=== PATIENT | female | born 1940 | race Caucasian/White ===

== ENCOUNTER → 2019-07-24 16:52 | Outpatient (CLI) | payer MEDICARE, SELFPAY ==
--- NOTE | ~2019-07-24 | XR_ITS ---
EXAMINATION: XR chest 2V 07/24/2019 17:13 INDICATION: Chest pain PROCEDURE: 2 view chest COMPARISON: 06/16/2013 FINDINGS: The lungs are clear. The cardiomediastinal silhouette is within normal limits. There are no pleural effusions. There is no pneumothorax suspected. IMPRESSION: 1: NO ACUTE CARDIOPULMONARY DISEASE. Reviewed, dictated and finalized at location A. WALKER
== END ==
PROVIDERS: PCP Family Medicine; Visit Provider Family Medicine
DX: R07.9 Chest pain, unspecified (principal)
CPT/HCPCS: 71046

== ENCOUNTER 2020-03-22 12:32 | Outpatient (CLI) | payer MEDICARE, SELFPAY ==
--- NOTE | ~2020-03-22 | XR_ITS ---
EXAMINATION: XR hip RT min 2V DATE: 03/22/2020 13:06 INDICATION: Right hip pain. TECHNIQUE: 2 views of right hip were obtained. COMPARISON: CT abdomen and pelvis 03/23/2016 FINDINGS: Bone alignment is normal. No fracture. There is severe right hip osteoarthritis. There are chronic dystrophic calcifications posterior inferior to the right ischium. IMPRESSION: 1. Severe right hip osteoarthritis. Reviewed, dictated and finalized at location A.
--- NOTE | ~2020-03-22 | XR_ITS ---
XR lumbar spine 2-3V 03/22/2020 13:06 Indication: Low back pain Procedure: 3 views lumbar spine Comparison: 10/09/2017 Findings: There is disc narrowing at L2-3 through L5-S1. No fracture or traumatic malalignment. No ev idence for spondylolysis or spondylolisthesis. Mild dextrocurvature of the lumbar spine centered at L 3. There are pelvic phleboliths. There are calcified granulomas of the spleen. Impression: 1: Moderate-severe lumbar spondylosis. Reviewed, dictated and finalized at location B. Impression: 1: Moderate-severe lumbar spondylosis.
== END 2020-03-22 12:33 | disposition home or self-care (01) ==
PROVIDERS: PCP Family Medicine; Visit Provider Family Medicine
DX: M47.896 Other spondylosis, lumbar region (principal); M16.11 Unilateral primary osteoarthritis, right hip
CPT/HCPCS: 72100; 73502

== ENCOUNTER 2021-12-19 09:53 | Outpatient (CLI) | payer MEDICARE, SELFPAY ==
--- NOTE | ~2021-12-19 | XR_ITS ---
XR hip RT 2V w AP pelvis DATE: 12/19/2021 10:19 INDICATION: Chronic right hip pain, worse over the past month TECHNIQUE: AP pelvis. AP and lateral views of right hip COMPARISON: 03/22/2020 right hip 03/23/2016 CT abdomen pelvis FINDINGS: Prominent dystrophic soft tissue calcifications are again noted in the lower posterior medi al aspect of the buttocks, present on 03/23/2016 CT abdomen pelvis examination. Since 03/22/2020 there is prominent flattening deformity of the right femoral head, increased patchy sclerosis and cystic change of the right femoral head and the apposing right acetabulum, in addition to spurring and severe right hip joint space narrowing, consistent with severe secondary osteoarthrit is. Normal alignment at the pubic symphysis and sacroiliac joints. No pelvic fracture or bone destruction is detected. The left hip joint space is well preserved. There is severe degenerative disc disease at L3-4, L4-5 and L5-S1. IMPRESSION: Prominent flattening deformity and patchy sclerosis and cystic change of the right femora l head, consistent with avascular necrosis. Severe right hip secondary osteoarthritis Severe degenerative disc disease at L3-4 through L5-S1 Chronic dystrophic soft tissue calcifications of the lower posterior medial buttocks Reviewed, dictated and finalized at location B. IMPRESSION: Prominent flattening deformity and patchy sclerosis and cystic woods ge of the right femoral head, consistent with avascular necrosis. Severe right hip secondary osteoarthritis Severe degenerative disc disease at L3-4 through L5-S1 Chronic dystrophic soft tissue calcifications of the lower posterior medial but tocks
== END 2021-12-19 09:54 | disposition home or self-care (01) ==
PROVIDERS: PCP Family Medicine; Visit Provider Physician Assistant
DX: M79.89 Other specified soft tissue disorders (principal); M16.11 Unilateral primary osteoarthritis, right hip; M47.817 Spondylosis without myelopathy or radiculopathy, lumbosacral region
CPT/HCPCS: 73502

== ENCOUNTER 2023-05-25 15:22 | Outpatient (CLI) | payer MEDICARE, SELFPAY ==
--- NOTE | ~2023-05-25 | US_ITS ---
US soft tissue head and neck DATE: 05/25/2023 16:03 INDICATION: Neck mass TECHNIQUE: Real time and color flow imaging at neck mass COMPARISON: None FINDINGS: There is an approximately 1.2 x 2.4 x 2.2 cm circumscribed sonolucency within the isthmus a nd left lower pole of the thyroid gland. 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 Reviewed, dictated and finalized at location A. E MAN
== END 2023-05-25 15:23 | disposition home or self-care (01) ==
PROVIDERS: PCP Family Medicine; Visit Provider Nurse Practitioner Family
DX: E04.1 Nontoxic single thyroid nodule (principal)
CPT/HCPCS: 76536

== ENCOUNTER 2023-06-27 09:28 | Inpatient (IN) | payer MEDICARE, SELFPAY ==
[2023-06-27] VITALS (8 sets, daily range): BP systolic 118–165; BP diastolic 54–86; PULSE 58–81; RESP 12–20; TEMP 36.6–37.1; O2SAT 96–98; BMI 22.4
--- NOTE | ~2023-06-27 | US_ITS ---
EXAMINATION: US carotid duplex BI DATE: 06/28/2023 08:38 INDICATION: Dizziness TECHNIQUE: Grayscale, color Doppler, and pulsed Doppler images of the cervical carotid arteries were obtained. The degree of vessel stenosis is placed in one of the following categories: normal, <50%, 5 0-69%, >=70% but less than near-occlusion, near-occlusion, or total occlusion. Note that percent sten osis relative to normal distal artery lumen diameter is indirectly measured from velocity measurement s as described by Marvin, et al. Radiology 2003; 229:340-346. COMPARISON: None. FINDINGS: RIGHT: The right common carotid artery (CCA) peak systolic velocity (PSV) is 77 cm/s. The right internal car otid artery (ICA) PSV is 90 cm/s. The right ICA end-diastolic velocity (EDV) is 31 cm/s. The right IC A/CCA PSV ratio is 1.2. Grayscale and color Doppler images yield an estimate of <50% diameter reducti on from plaque in the ICA. The external carotid artery (ECA) PSV is 78 cm/s. There is antegrade flow in the right vertebral artery. LEFT: The left CCA PSV is 79 cm/s. The left ICA PSV is 83 cm/s. The left ICA EDV is 24 cm/s. The left ICA/C CA PSV ratio is 1.1. Grayscale and color Doppler images yield an estimate of <50% diameter reduction from plaque in the ICA. The ECA PSV is 104 cm/s. There is antegrade flow in the left vertebral artery . IMPRESSION: 1. <50% stenosis in the right internal carotid artery. 2. <50% stenosis in the left internal carotid artery. 3. Cardiac arrhythmias present. Correlate with EKG. Reviewed, dictated and finalized at location A. IPITATE WASHER
--- NOTE | ~2023-06-27 | CT_ITS ---
EXAMINATION: CTA brain carotid DATE: 06/28/2023 17:01 INDICATION: Weakness. Fatigue. TECHNIQUE: Computed tomographic angiography (CTA) of the head was performed without and with 100 mL O mnipaque-350 intravenous contrast. CTA of the neck was performed with intravenous contrast. Automated exposure control and iterative reconstruction technique were employed. The dose-length product was 1 545.93 mGy-cm. Maximum intensity projection and volume rendered 3D-reconstructions were created by francisco cazares technologist on a separate workstation. COMPARISON: Head CT 06/27/2023 FINDINGS: HEAD CTA: There are scattered areas of low attenuation in the cerebral white matter, which is within normal limits for the patient's age. There is no intracranial hemorrhage, acute infarction, or abnorm al intracranial mass lesion. The ventricles are normal in size. There is mild mucosal thickening in t he paranasal sinuses. The mastoid air cells are normal. The orbits are normal. There is a right front al scalp lipoma. The vertebral arteries are codominant. There is no significant stenosis of basilar a rtery or the posterior cerebral arteries. There is no significant stenosis of the intracranial human resource internship al carotid arteries or anterior or middle cerebral arteries. Anterior communicating artery is normal. The posterior communicating arteries are normal. There is no aneurysm. NECK CTA: There are nodules in the thyroid measuring up to 2.2 cm. There are no pathologically enlarg ed lymph nodes. There is no significant stenosis of the vertebral arteries. There is plaque in the pr oximal internal carotid arteries. There is 0% stenosis of the proximal right internal carotid artery relative to normal distal artery lumen diameter (NASCET criteria). There is 44% stenosis of the proxi mal left internal carotid artery relative to normal distal artery lumen diameter. There is severe cer vical spondylosis. IMPRESSION: 1. Normal aging brain. 2. No aneurysm or significant intracranial arterial stenosis. 3. 0% stenosis of the proximal right internal carotid artery relative to normal distal artery lumen d iameter (NASCET criteria). 4. 44% stenosis of the proximal left internal carotid artery relative to normal distal artery lumen d iameter. Reviewed, dictated and finalized at location E. E ADVISOR IMPRESSION: 1. Normal aging brain. 2. No aneurysm or significant intracranial arterial stenosis. 3. 0% stenosis of the proximal right internal carotid artery relative to normal distal artery lumen diameter (NASCET criteria). 4. 44% stenosis of the proximal left internal carotid artery relative to normal distal artery lumen diameter.
--- NOTE | ~2023-06-27 | MR_ITS ---
EXAMINATION: MR brain/brain stem wo/w con DATE: 06/28/2023 08:04 INDICATION: Dizziness. Gait disturbance. TECHNIQUE: Magnetic resonance imaging (MRI) of the brain and brainstem was performed without intraven ous contrast. Sequences included sagittal and axial T1-weighted SE, axial diffusion-weighted FS SE, a xial T2*-weighted GRE, axial T2-weighted FLAIR Propeller, and axial T2-weighted Propeller. Apparent d iffusion coefficient (ADC) maps were created. Automated exposure control and iterative reconstruction technique were employed. COMPARISON: CT dated 06/27/2023. FINDINGS: Mild generalized atrophy. There are scattered mild periventricular and subcortical white ma tter changes, most likely related to small vessel ischemic disease (microangiopathy). No acute infarc tion, hemorrhage, enhancing mass or mass effect. Midline sagittal images demonstrate a normal corpus callosum and craniovertebral junction are paranasal sinuses and mastoids are unremarkable. Structures of the posterior fossa are unremarkable. IMPRESSION: 1. No acute intracranial abnormality. 2: Chronic age-related findings. Reviewed, dictated and finalized at location L. S AND RETAIL MANAGEMENT RECRUITER
--- NOTE | ~2023-06-27 | XR_ITS ---
XR chest 2V 06/27/2023 12:34 Indication: Weakness Procedure: 2 view chest Comparison: 07/24/2019 Findings: Cardiomegaly. Mild interstitial edema. No pneumothorax. No acute osseous abnormality. Impression: 1: Cardiomegaly with mild interstitial edema. Reviewed, dictated and finalized at location B. CIATE PROFESSOR OF ECONOMICS Impression: 1: Cardiomegaly with mild interstitial edema.
--- NOTE | ~2023-06-27 | CT_ITS ---
EXAMINATION: CT BRAIN W/O DATE: 06/27/2023 13:57 INDICATION: Dizziness and weakness TECHNIQUE: Computed tomography (CT) of the head was performed without intravenous contrast. The dose- length product was 605.33 mGy-cm. Automated exposure control and iterative reconstruction technique w ere employed. COMPARISON: No prior studies for comparison. FINDINGS: Mild generalized atrophy. No acute infarction, hemorrhage or mass. There are scattered mild periventricular and subcortical white matter changes, most likely related to small vessel ischemic d isease (microangiopathy). No ventriculomegaly or midline shift. Midline sagittal images demonstrate a normal corpus callosum, c raniovertebral junction and sella turcica. Basilar cisterns are patent. Paranasal sinuses and mastoids are pneumatized. No depressed skull fractures. IMPRESSION: 1. No acute intracranial abnormality. Reviewed, dictated and finalized at location B. RETE SWIMMING POOL INSTALLER
--- NOTE | 2023-06-27 12:03 | ECG_ITS ---
Measurements Intervals [place] Rate: 72 P: 52 MI: 148 QRS: -49 QRSD: 124 T: 49 QT: 434 QTc: 478 Interpretive Statements SINUS RHYTHM SUPRAVENTRICULAR BIGEMINY RIGHT BUNDLE BRANCH BLOCK LEFT ANTERIOR FASCICULAR BLOCK BASELINE ARTIFACT- I, II, III, AVR, AVL, AVF ABNORMAL ECG NO PREVIOUS ECG AVAILABLE FOR COMPARISON Electronically Signed On 06-27-2023 12:45:55 PRESIDENT by Cornelius Piña D.O.
--- NOTE | 2023-06-27 12:18 | ED.WEAKNESS ---
HPI - Weakness General Chief complaint: Weakness <Fidelina Rodriguez PA-C - Last Filed: 06/27/23 17:21> Stated complaint: weakness <NADEEM Rudolph Last Filed: 06/27/23 17:21> Time Seen by Provider: 06/27/23 12:11 <NADEEM Rudolph Last Filed: 06/27/23 17:21> Source: patient <NADEEM Rudolph Last Filed: 06/27/23 17:21> Mode of arrival: wheelchair <NADEEM Rudolph Last Filed: 06/27/23 17:21> Limitations: no limitations <NADEEM Rudolph Last Filed: 06/27/23 17:21> History of Present Illness HPI Narrative: This is a 83 year old female that presents to the ER for dizziness. Ongoing over the last 3 days. Reports lightheadedness. Reports feeling unsteady on her feet. Today she had to crawl to get around because she was afraid she would fall. Reports urinary frequency. Denies fever, chest pain, shortness of breath, palpitations, dysuria. <NADEEM Rudolph Last Filed: 06/27/23 17:21> Related Data Allergies/Adverse reactions: Allergies Allergy/AdvReac Type Severity Reaction Status Date / Time No Known Allergies Allergy Unknown Unverified 01/27/16 14:20 <Fidelina Rodriguez PA-C - Last Filed: 06/27/23 17:21> Review of Systems Review of Systems: CONSTITUTIONAL: Denies fever EYES: Denies visual changes CARDIOVASCULAR: Denies chest pain, palpitations, or edema. RESPIRATORY: Denies dyspnea. GASTROINTESTINAL: Denies vomiting GENITOURINARY: Denies dysuria NEUROLOGIC: Denies headache, numbness, or weakness. <NADEEM Rudolph Last Filed: 06/27/23 17:21> All systems reviewed & are unremarkable except as noted in HPI and below <NADEEM Rudolph Last Filed: 06/27/23 17:21> [facility] Past Medical History Medical History: Medical History (Updated 06/27/23 @ 17:16 by Fidelina Rodriguez PA-C) History of hyperlipidemia History of hypertension <Fidelina Rodriguez PA-C - Last Filed: 06/27/23 17:21> Social History Social History: Social History (Updated 06/27/23 @ 13:52 by Fidelina Rodriguez PA-C) Substance use: never <Fidelina Rodriguez PA-C - Last Filed: 06/27/23 17:21> Exam Narrative: GENERAL: Elderly, well-nourished, and in no acute distress. HEAD: Normocephalic, atraumatic. EYES: PERRLA and EOMI. ENT: Nares clear, no rhinorrhea or epistaxis. Mucous membranes moist. Oropharynx without tonsillar hypertrophy exudate or other lesions. Bilateral TMs pearly diallo non-bulging NECK: Supple. No adenopathy or masses. No JVD CHEST: Clear to auscultation. No respiratory distress. No wheezes rales or rhonchi HEART: Regular rate and rhythm. No murmur heard. Normal peripheral pulses. ABDOMEN: Soft, nontender, nondistended, normal active bowel sounds. No CVA tenderness EXTREMITIES: Normal range of motion. No edema. SKIN: Warm, dry, no rash. NEURO: No focal deficits. Alert and oriented x3. CN II-XII grossly intact PSYCH: Normal mood and affect <Fidelina Rodriguez PA-C - Last Filed: 06/27/23 17:21> Course Course Emergency Course: Patient and family updated on workup and agree with plan of care <Fidelina Rodriguez PA-C - Last Filed: 06/27/23 17:21> AIR PURIFIER SERVICER/PA Physician Supervision For this patient encounter, I reviewed the AIR PURIFIER SERVICER or PA documentation, treatment plan, and medical decision making. <Derek Mccarthy MD - Last Filed: 06/27/23 18:43> Consultations Consultation #1: Spoke with hospitalist about patient and workup who accepts admission. Would like MRI brain ordered <Fidelina Rodriguez PA-C - Last Filed: 06/27/23 17:21> Date: 06/27/23 <Fidelina Rodriguez PA-C - Last Filed: 06/27/23 17:21> Vital Signs Vital signs: Vital Signs Temperature 97.9 F 06/27/23 09:31 Pulse Rate 81 06/27/23 09:31 Respiratory Rate 18 06/27/23 09:31 Blood Pressure 159/61 H 06/27/23 09:31 Pulse Oximetry 98 06/27/23 09:31 Temperature 97.9 F 06/27/23 09:31 Pulse Rate 80 06/27/23 15:52 Respiratory Rate 17
[2023-06-27 12:25] LABS: Basophils Absolute Auto 0.1 K/mm3 (0.0-0.1); Basophils Percent Auto 0.7 % (0.2-1.2); Eosinophils Absolute Auto 0.1 K/mm3 (0-0.3); Eosinophils Percent Auto 1.8 % (0-4.4); Hematocrit 39.3 % (37.0-47.0); Hemoglobin 12.8 g/dL (12.0-15.0); Immature Granulocyte Absolute 0.01 K/mm3 (0.00-0.031); Immature Granulocyte Percent A 0.1 % (0-0.5); Lymphocytes Absolute Auto 1.91 K/mm3 (0.9-3.2); Lymphocytes Percent Auto 26.6 % (18.3-44.2); Mean Corpuscular HGB Conc 32.6 g/dl (32-36); Mean Corpuscular Hemoglobin 28.3 pg (26-34); Mean Corpuscular Volume 86.8 fl (80-100); Mean Platelet Volume 8.9 fl (7.4-10.4); Monocytes Absolute Auto 0.6 K/mm3 (0.1-0.6); Monocytes Percent Auto 7.8 % (2.6-8.5); Neutrophils Absolute Auto 4.5 K/mm3 (1.3-6.7); Platelet Count Result 308 k/mm3 (150-375); Red Blood Count 4.53 M/mm3 (4.2-5.4); Red Cell Distribution Width 13.5 % (11.5-14.5); White Blood Count 7.2 K/mm3 (4.5-10.0)
[2023-06-27 12:34] LABS: Alanine Aminotransferase 27 U/L (6-35); Albumin Level 4.2 g/dL (3.5-5.1); Alkaline Phosphatase 82 U/L (38-126); Anion Gap 8 mmol/L (8-16); Aspartate Amino Transferase 33 U/L (14-36); Bilirubin,Total 0.4 mg/dL (0.2-1.3); Blood Urea Nitrogen 16 mg/dL (7-17); Calcium 8.8 mg/dL (8.4-10.2); Carbon Dioxide 25 mmol/L (22-30); Chloride 106 mmol/L (98-107); Estimated CRCL calculation 51 ml/min; Estimated Glomerular Filt Rate > 60; Glucose 157 mg/dL (65-110); Potassium 4.2 mmol/L (3.4-5.0); Sodium 139 mmol/L (137-145)
[2023-06-27 12:58] LABS: Appearance Urine Clear (Clear); Bacteria Urine None Seen /hpf; Bilirubin Urine Negative (Negative); Blood Urine Negative (Negative); Color Urine Yellow (Yellow); Glucose Urine UA Negative (Negative); Ketones Urine Negative (Negative); Leukocyte Esterase Ur 1+ LEU/UL (Negative); Nitrate Urine Negative (Negative); Non Pathogenic Casts 0-2; Protein Urine Negative (Negative); RBC Urine 0-2 /hpf (0-2); Specific Grav Ur 1.008 (1.001-1.035); Squamous Epithelial Cell Urine None seen /hpf (Few); Urobilinogen Urine 0.2 mg/dL (<2.0)
[2023-06-27 13:00] LABS: Influenza A QL RT-PCR Negative (Negative); Influenza B QL RT-PCR Negative (Negative); RSV RNA, RT-PCR Negative (Negative); SARS-CoV-2 RNA PCR Negative (Negative)
[2023-06-27 13:03] LABS: Add Urine Microscopic? YES
[2023-06-27 13:24] LABS: NT Pro B Type Natriuretic Pept 147 pg/mL (19.9-100)
--- NOTE | 2023-06-27 13:52 | PC.NURSE ---
pt taken to CT
[2023-06-27] MEDS: SODIUM CHLORIDE 0.9% IV 500 ML 250 ML IV CONT (14:05)
[2023-06-27 14:42] LABS: Troponin I < 0.012 ng/mL (0.000-0.034)
[2023-06-27 15:02] LABS: Thyroid Stimulating Hormone Reflex 0.105 uIU/mL (0.465-4.68)
[2023-06-27 15:46] LABS: Free T4 Free Thyroxine Reflex 0.93 ng/dL (0.78-2.19)
--- NOTE | 2023-06-27 16:33 | PC.NURSE ---
standard heart healthy diet dinner tray ordered
--- NOTE | 2023-06-27 20:07 | PM.IMHP ---
H&P: HPI History of Present Illness Date/Time: 06/27/23 16:30 Chief Complaint: Dizziness. Narrative: This is a very pleasant 83-year-old female with hypertension and hyperlipidemia who presented to the emergency department via private vehicle for evaluation of dizziness. The patient provides the following history. The last 3 days she has been feeling dizzy and unsteady on her feet. She has difficulties describing the dizziness and at times it sounds as though she is lightheaded although it sounds like she is also having some component of vertigo as she reports having to hold onto orr and furniture to keep steady. At about 03:00 she got up to use the restroom and once again she was feeling quite dizzy. She did not make it back to bed and instead sat on the bathroom floor with a cool rag on her face for several hours until she could phoned her daughter. She denies fall, vision changes, facial droop, difficulty speaking and swallowing, focal weakness, and paresthesias. She also denies fever, chills, sweats, cold and flu symptoms, irregular heartbeat, nausea, vomiting, diarrhea, and dysuria. Her vital signs were stable on arrival to the emergency department. Orthostatic vital signs were negative. Random glucose was a bit elevated though the rest of her labs were pretty unremarkable. Urine showed 1+ leukocyte esterase and 11 to [address] was normal. Ambulation challenge revealed that she felt unsteady on her feet and she is being admitted in this setting for monitoring and further workup. Patient is worried that she may have had a stroke. Review of Systems Review of Systems: Twelve systems were reviewed and are negative except for as per HPI. [facility] Past Medical History Medical History (Updated 06/27/23 @ 20:18 by Madai Ardon PA-C) Hyperlipidemia Hypertension Surgical History Surgical History (Updated 06/27/23 @ 20:13 by Madai Ardon PA-C) History of cholecystectomy History of right hip replacement Family History Family History (Updated 06/27/23 @ 20:13 by Madai Ardon PA-C) Other Family history non-contributory Social History Social History (Updated 06/27/23 @ 20:15 by Madai Ardon PA-C) Social History: Surrogate medical decision maker: Danii Saba, daughter. Code status: Full code. Smoking status: Never smoker Alcohol intake: never Substance use: never Do You Feel Safe in your Home?: Yes Lack of Transportation: No Lack of Food: Never True Current Housing: I Have Housing Concerned About Future Housing: No Difficulty Paying Gas/Electric Bills: No Difficulty Paying for Meds: No Currently Unemployed: No Education: Decline to Answer Difficulty w/ Childcare or Family Care: No Additional living arrangements comments: Lives [place] They have 4 children. Spiritual care concerns: No Meds Home Medications and Allergies Home Medications Medication Instructions Recorded Confirmed Type Adults Multivitamin 1 tablet PO DAILY 06/27/23 06/27/23 History aspirin 81 mg capsule 81 mg PO DAILY 06/27/23 06/27/23 History lisinopril 5 mg tablet 5 mg PO DAILY 06/27/23 06/27/23 History rosuvastatin 10 mg tablet 10 mg PO DAILY 06/27/23 06/27/23 History Allergies Allergy/AdvReac Type Severity Reaction Status Date / Time No Known Allergies Allergy Unknown Unverified 01/27/16 14:20 Vital Signs Vital Signs - 24 hr 06/27/23 09:31 06/27/23 12:51 06/27/23 14:29 Temperature 97.9 F Pulse Rate 81 74 69 Respiratory Rate 18 20 17 Blood Pressure 159/61 H 143/59 H 125/86 Pulse Oximetry 98 97 96 06/27/23 15:48 06/27/23 15:50 06/27/23 15:52 Temperature Pulse Rate 67 76 80 Respiratory Rate Blood Pressure 142/57 H 160/60 H 165/75 H Pulse Oximetry Exam Narrative: General: Well-developed elderly female sitting up in bed no acute distress. Weight: 52 kg. BMI: 22.4. HEENT: Normocephalic, atraumatic. Wearing corrective
[2023-06-28] VITALS (12 sets, daily range): BP systolic 101–147; BP diastolic 56–71; PULSE 57–89; RESP 12–16; TEMP 36.2–36.6; O2SAT 95–97
[2023-06-28 06:09] LABS: Anion Gap 8 mmol/L (8-16); Blood Urea Nitrogen 16 mg/dL (7-17); Calcium 8.9 mg/dL (8.4-10.2); Carbon Dioxide 25 mmol/L (22-30); Chloride 109 mmol/L (98-107); Estimated CRCL calculation 43 ml/min; Estimated Glomerular Filt Rate > 60; Glucose 108 mg/dL (65-110); Potassium 4.2 mmol/L (3.4-5.0); Sodium 142 mmol/L (137-145)
[2023-06-28 06:47] LABS: Hemoglobin A1C 6.3 % (<5.7)
[2023-06-28] MEDS: MULTIVITAMINS THERAPEUTIC TAB (*BKC) 1 TABLET PO (10:03)
[2023-06-28] MEDS: ROSUVASTATIN 10 MG TABLET PO (10:03)
[2023-06-28] MEDS: lisinopriL 5 MG TABLET PO (10:04)
[2023-06-28] MEDS: ASPIRIN 81 MG ENTERIC TABLET PO (10:04)
--- NOTE | 2023-06-28 11:06 | PM.IMPN ---
Progress Note: A&P Assessment and Plan (1) Dizziness: Code(s): R42 - Dizziness and giddiness Status: Acute Assessment and Plan: MRI brain without any acute findings, chronic age related changes only. Carotid doppler showing less than 50% bilateral ICA stenosis. Also showing a cardiac arrhythmia. No known hx of known arrhythmias. Telemetry has shown Continue to monitor labs, VS and tele Non-orthostatic ECHO and Neurology consult are currently pending. (2) Cardiac arrhythmia: Code(s): I49.9 - Cardiac arrhythmia, unspecified Status: Acute Assessment and Plan: Pt's EKG's reviewed and show Bigemenous pattern. Pt's Carotid US shows that there was an arrhythmia present upon performing the test. Concern for potential undiagnosed arrhythmia as she has no known abnormal rhythm. Pt is symptomatic with dizziness. Consult Cardiology, appreciate their evaluation and recommendation. Magnesium is 2.0, Calcium is 8.9, normal trop. Subclinical hypothyroidism is present. (3) Subclinical hypothyroidism: Code(s): E03.8 - Other specified hypothyroidism Status: Acute Assessment and Plan: TSH is low at 0.105, but Free T4 is preserved at 0.93 Recommend following up in three months with repeat labs. (4) Hypertension: Code(s): I10 - Essential (primary) hypertension Status: Chronic Assessment and Plan: Continue to monitor BP Continue Lisinopril 5 mg po daily. (5) Abnormal urinalysis: Code(s): R82.90 - Unspecified abnormal findings in urine Status: Acute Assessment and Plan: UA with 1+ Leukocyte esterase, and 11-20 WBC's in a setting of no epithelials. Continue with Empiric Rocephin pending Urine culture result. (6) Hyperlipidemia: Code(s): E78.5 - Hyperlipidemia, unspecified Status: Chronic Assessment and Plan: Continue Rosuvastatin 10 mg po daily. Time Spent With Patient Time with patient: 25 - 35 minutes Subjective Date/time seen: 06/28/23 0910 Interval history: This pt was examined at the bedside in interval assessment after being admitted to the hospital for a three day hx of vertigo and unsteadiness of gait. Her orthostats have been negative and her ER workup was significant for abnormal UA with possible reflection of UTI. She is receiving empiric Rocephin. She was admitted to the floor pending Neuro work up as pt is ultimately concerned that she may have had a stroke. Pt with continued dizziness today with changing positions. MRI has returned without any acute findings except for chronic age related changes only. Carotid doppler shows less than fifty percent stenosis bilaterally. Still pending is ECHO and urine culture as well as PT and OT eval and treat and Neurology consult. She has no new complaints today and is without any new symptoms. Review of her tele does show concerns for Bigeminy with current symptoms. Will consider consulting Cardiology. Review of Systems Review of Systems: All systems reviewed & are unremarkable except as noted in HPI and below Exam Narrative: General: Well-developed elderly female sitting up in bed no acute distress. She appears somewhat anxious regarding her current health situation. HEENT: Normocephalic, atraumatic. Wearing corrective lenses. PERRL, EOMI. Sclera anicteric. Oral mucosa moist. Neck: Supple, FROM, carotid bruits. Respiratory: Lungs are clear to auscultation bilaterally. Cardiovascular: Regular rate and rhythm with S1-S2. Gastrointestinal: Abdomen is soft, nontender, and nondistended with positive bowel sounds. Skin: Warm and dry. No rash or lesions on limited exam. Extremities: No cyanosis, clubbing, or edema. Radial and pedal pulses intact. Neurological: Alert and oriented. Non-focal exam present without any obvious deficits. Psychiatric: Pleasant and cooperative with a anxious affect, continually interrupting my questions and explanations. Pt reassured th
--- NOTE | 2023-06-28 13:26 | PM.CNCAR ---
Assessment and Plan Assessment and plan (1) Cardiac arrhythmia: Code(s): I49.9 - Cardiac arrhythmia, unspecified Status: Acute Assessment and Plan: Patient is sinus rhythm with PACs and periodic atrial bigeminy. This may be related to her hyperthyroid. Electrolytes are stable otherwise. (2) Atrial bigeminy: Code(s): I49.8 - Other specified cardiac arrhythmias Status: Acute Assessment and Plan: Will try low-dose propanolol 10 mg p.o. b.i.d. especially given her possible hyperthyroid state. 2D echocardiogram Doppler to ordered will be reviewed (3) Hyperthyroidism: Code(s): E05.90 - Thyrotoxicosis, unspecified without thyrotoxic crisis or storm Status: Acute Assessment and Plan: T3 levels are elevated. TSH is suppressed but T4 is normal. Endocrinology evaluation is warranted (4) Hypertension: Code(s): I10 - Essential (primary) hypertension Status: Chronic Assessment and Plan: Controlled (5) Dizziness: Code(s): R42 - Dizziness and giddiness Status: Acute Assessment and Plan: Her symptoms sound more orthostatic in etiology but reportedly her orthostatics were negative although I do not see that documented. Will reorder. I doubt, albeit not excluded, that her atrial ectopy is causing her symptoms of dizziness History of Present Illness History of Present Illness Consult date/time: 06/28/23 13:26 Requesting physician: Verónica Roe, [employer]ING [employer]PERATOR-Jalen Consult reason: Other (Dizziness, atrial bigeminy) Reason For Visit: uti,dizziness,gait instability Narrative: Date of service 06/28/2023 Requesting provider: Verónica Roe Reason for consultation: Bigeminy, dizziness History: Patient is a 83-year-old female came to hospital because of dizziness. She has a history of hypertension hyperlipidemia. She states that she had acute onset of dizziness and unsteadiness. Typically speaking her dizziness occurs when she stands up. She does not advocate that her symptoms are related to the room spinning for she standing. She simply states she feels lightheaded and is if she could pass out. She was admitted for further workup. Workup to this point is essentially benign including unremarkable carotid artery ultrasound, neuro imaging. Was noted patient does have PACs and atrial bigeminy and cardiology consulted for the possibility of these being the cause of her dizziness. She denies any chest pain, shortness breath, syncope, paroxysmal nocturnal dyspnea, orthopnea, edema palpitations Review of Systems Review of Systems: All systems reviewed & are unremarkable except as noted in HPI and below Constitutional: Constitutional: Denies body ache(s) Eyes: Eyes: Denies blurry vision ENT: Denies Normal hearing present Cardiovascular: Cardiovascular: Denies chest pain and Denies palpitations Respiratory: Respiratory: Denies hemoptysis Gastrointestinal: Gastrointestinal: Denies abdominal pain Genitourinary: Genitourinary: Denies hematuria Musculoskeletal: Musculoskeletal: Denies back pain Integumentary/Breasts: Skin/Breast: Denies erythema Neurologic: Denies Abnormal speech present Comments: Dizziness Psychiatric: Psychiatric: Denies anxiety Endocrine: Endocrine: Denies excessive sweating Hematologic/Lymphatic: Hematologic/Lymphatic: Denies easy bleeding Allergic/Immunologic: Allergic/Immunologic: Denies GI upset with certain foods PMFSH Past Medical History Medical History (Updated 06/28/23 @ 13:33 by Ervin Brown MD) Cardiac arrhythmia Hyperlipidemia Hypertension Subclinical hypothyroidism Surgical History Surgical History (Updated 06/27/23 @ 20:13 by Madai Ardon PA-C) History of cholecystectomy History of right hip replacement Family History Family History (Updated 06/28/23 @ 13:31 by Ervin Brown MD) Mother Acute myocardial infarction Other Family history non-contributory
--- NOTE | 2023-06-28 14:31 | WPDNEURCNPN ---
Assessment and Plan Assessment and plan (1) Lightheadedness: Code(s): R42 - Dizziness and giddiness Status: Acute (2) Acute UTI: Code(s): N39.0 - Urinary tract infection, site not specified Status: Acute Plan Samantha Owens is a 83 year old female with a history of hypertension, hyperlipidemia presenting for evaluation of lightheadedness. Seems to be most likely orthostatic intolerance, especially since symptoms are exacerbated by positional change. She may also have a UTI for which she is being treated, which may also exacerbate her symptoms. She reports that she does not drink very much fluid at baseline. MRI Brain and carotid doppler studies unrevealing. TSH is low. I do not see levothyroxine in her home meds, sounds like subclinical hyperthyroidism since T4 is normal. Could be related to her symptoms as well. - Obtain CTA brain/carotid to evaluate for posterior circulation insufficiency - Check orthostatic vitals during admission Consult date: 06/28/23 Reason for consult: Lightheadedness HPI: Samantha Owens is a 83 year old female with a history of hypertension, hyperlipidemia presenting for evaluation of lightheadedness. Patient reports that yesterday morning, she got up around 3AM to go to the [facility]. While getting up she felt lightheadedness, or how she describes it like she was going to 'pass out'. She denies any room spinning sensation or vertigo. She has been feeling very lightheadedness since then, that is worse with positional change (lying to sitting, sitting to standing). Her lightheadedness was so bad that night, that she had to crawl to the kitchen to call her daughter. She denied any other focal symptoms. No chest pain, shortness of breath, tunnel vision, tinnitus. Patient reports that she does not drink very much water. In the ED her orthostatics were reportedly negative. UA showed 1+ LE and 11-[address] head was negative for acute change. BP has been in the 110s- 140s systolic in the past day. MRI brain read as negative for acute changes. Carotid doppler study showed <50% stenosis bilaterally, but report also mentions presence of cardiac arrhythmias. Cardiology already consulted for this finding. EKG on admission read as sinus rhythm. Review of Systems Review of Systems: All systems reviewed & are unremarkable except as noted in HPI and below PMFSH Past Medical History Medical History Cardiac arrhythmia Hyperlipidemia Hypertension Subclinical hypothyroidism Surgical History Surgical History History of cholecystectomy History of right hip replacement Family History Family History Mother Acute myocardial infarction Other Family history non-contributory Social History Social History Social History: Surrogate medical decision maker: Danii Saba, daughter. Code status: Full code. Smoking status: Never smoker Alcohol intake: never Substance use: never Do You Feel Safe in your Home?: Yes Lack of Transportation: No Lack of Food: Never True Current Housing: I Have Housing Concerned About Future Housing: No Difficulty Paying Gas/Electric Bills: No Difficulty Paying for Meds: No Currently Unemployed: No Education: Decline to Answer Difficulty w/ Childcare or Family Care: No Additional living arrangements comments: Lives with spouse in [place]. They have 4 children. Spiritual care concerns: No Meds Home Medications and Allergies Home Medications Medication Instructions Recorded Confirmed Type Adults Multivitamin 1 tablet PO DAILY 06/27/23 06/27/23 History aspirin 81 mg capsule 81 mg PO DAILY 06/27/23 06/27/23 History lisinopril 5 mg tablet 5 mg PO DAILY 06/27/23 06/27/23 History rosuvastatin 10 mg tablet 10 mg PO DAILY 06/27/2306/27
--- NOTE | 2023-06-28 20:19 | ECHO_ITS ---
Patient Info Name: Samantha Owens Age: 83 years : 1940 Gender: Female Ht: 62 in Wt: 120 lbs BSA: 1.55 m2 HR: 71 bpm BP: 118 / 54 mmHg Heart Rhythm: Sinus Rhythm Technical Quality: Good Exam Date: 06/28/2023 9:31 AM Exam Location: Echo Lab Patient Status: Outpatient Admit Date: 06/27/2023 Staff Ordering Physician: Madai Ardon PA-C Lumber Loader: Anitha Casas RDCS Attending Provider: Verónica Roe Referring Physician: Reva SWANSON; Exam Type: CA echo doppler color flow Study Info Indications - dizziness, cardiomegaly Complete two-dimensional, color flow and Doppler transthoracic echocardiogram is performed. Summary 1. Complete two-dimensional, color flow and Doppler transthoracic echocardiogram is performed. 2. Left ventricular chamber dimension is normal. 3. Left ventricular systolic function is normal, estimated at 60-65%. 4. There is mildly increased left ventricular wall thickness. 5. The left ventricular diastolic function is grade I diastolic dysfunction. 6. Left atrial chamber dimension is mildly enlarged. 7. Right atrial chamber dimension is mildly enlarged. 8. There is moderate aortic valve regurgitation. 9. There is mild mitral valve regurgitation. 10. The mitral valve has thickened leaflets. 11. There is mild tricuspid valve regurgitation. Left Ventricle Left ventricular chamber dimension is normal. Left ventricular systolic function is normal, estimated at 60-65%. There is mildly increased left ventricular wall thickness. The left ventricular diastolic function is grade I diastolic dysfunction. Right Ventricle Right ventricular chamber dimension is normal. Right ventricular systolic function is normal. Left Atria Left atrial chamber dimension is mildly enlarged. Right Atria Right atrial chamber dimension is mildly enlarged. Atrial Septum Intact interatrial septum visualized by color flow imaging. Aortic Valve The aortic valve is probable trileaflet. There is mild aortic valve sclerosis. There is no aortic valve stenosis. There is moderate aortic valve regurgitation. Pulmonic Valve The pulmonic valve is normal. There is no pulmonic valve stenosis. There is trace pulmonic regurgitation. Mitral Valve The mitral valve has thickened leaflets. There is no mitral valve stenosis. There is mild mitral valve regurgitation. Tricuspid Valve The tricuspid valve leaflets are normal. There is no significant tricuspid valve stenosis. There is mild tricuspid valve regurgitation. No pulmonary hypertension, estimated pulmonary arterial systolic pressure is 20 mmHg. Pericardium/Pleural The pericardium appears normal. There is no pericardial effusion. Inferior Vena Cava Normal inferior vena cava with >50% collapse upon inspiration consistent with normal right atrial pressure, 10 mmHg. Aorta The aortic root size at the sinus of Valsalva is normal. Left Ventricular Outflow Tract Name Value Normal LVOT 2D LVOT Diameter 1.7 cm LVOT Doppler LVOT Peak Gradient 7 mmHg LVOT Mean Gradient 4 mmHg LVOT VTI 27 cm LVOT VTI/AV VTI Ratio
[2023-06-28] MEDS: PROPRANOLOL HCL 10 MG TABLET PO (20:50)
[2023-06-29] VITALS: PULSE 56
[2023-06-29 04:00] VITALS: PULSE 53
[2023-06-29 05:46] LABS: Basophils Absolute Auto 0.1 K/mm3 (0.0-0.1); Eosinophils Absolute Auto 0.6 K/mm3 (0-0.3); Eosinophils Percent Auto 7.7 % (0-4.4); Hemoglobin 12.9 g/dL (12.0-15.0); Immature Granulocyte Absolute 0.02 K/mm3 (0.00-0.031); Immature Granulocyte Percent A 0.3 % (0-0.5); Lymphocytes Absolute Auto 2.65 K/mm3 (0.9-3.2); Lymphocytes Percent Auto 36.3 % (18.3-44.2); Mean Corpuscular HGB Conc 33.1 g/dl (32-36); Mean Corpuscular Hemoglobin 28.7 pg (26-34); Mean Corpuscular Volume 86.7 fl (80-100); Mean Platelet Volume 8.8 fl (7.4-10.4); Monocytes Absolute Auto 0.7 K/mm3 (0.1-0.6); Monocytes Percent Auto 9.2 % (2.6-8.5); Neutrophils Absolute Auto 3.3 K/mm3 (1.3-6.7); Neutrophils Percent Auto 45.5 % (45.5-73.1); Platelet Count Result 293 k/mm3 (150-375); Red Cell Distribution Width 13.7 % (11.5-14.5); White Blood Count 7.3 K/mm3 (4.5-10.0)
[2023-06-29 06:00] VITALS: BP 129/57; PULSE 87; RESP 16; TEMP 36.5; O2SAT 96
[2023-06-29 06:04] LABS: Alanine Aminotransferase 23 U/L (6-35); Albumin Level 3.6 g/dL (3.5-5.1); Alkaline Phosphatase 69 U/L (38-126); Anion Gap 7 mmol/L (8-16); Aspartate Amino Transferase 24 U/L (14-36); Bilirubin,Total 0.5 mg/dL (0.2-1.3); Blood Urea Nitrogen 16 mg/dL (7-17); Calcium 8.9 mg/dL (8.4-10.2); Carbon Dioxide 25 mmol/L (22-30); Chloride 107 mmol/L (98-107); Estimated CRCL calculation 43 ml/min; Estimated Glomerular Filt Rate > 60; Glucose 105 mg/dL (65-110); Potassium 4.3 mmol/L (3.4-5.0); Sodium 139 mmol/L (137-145)
--- NOTE | 2023-06-29 07:29 | PM.PNCARD ---
Progress Note: A&P Assessment and Plan (1) Cardiac arrhythmia: Code(s): I49.9 - Cardiac arrhythmia, unspecified Status: Acute Assessment and Plan: Patient is sinus rhythm with PACs and periodic atrial bigeminy. This may be related to her hyperthyroid. Electrolytes are stable otherwise. Cardiology will sign off. Please call with questions. (2) Atrial bigeminy: Code(s): I49.8 - Other specified cardiac arrhythmias Status: Acute Assessment and Plan: Will try low-dose propanolol 10 mg p.o. b.i.d. especially given her possible hyperthyroid state. Echo showed normal LC systolic function, grade I diastolic dysfunction, and moderate AI. (3) Hyperthyroidism: Code(s): E05.90 - Thyrotoxicosis, unspecified without thyrotoxic crisis or storm Status: Acute Assessment and Plan: T3 levels are elevated. TSH is suppressed but T4 is normal. Endocrinology evaluation is warranted (4) Hypertension: Code(s): I10 - Essential (primary) hypertension Status: Chronic Assessment and Plan: Controlled (5) Dizziness: Code(s): R42 - Dizziness and giddiness Status: Acute Assessment and Plan: Her symptoms sound more orthostatic in etiology, however, orthostatics were negative. I doubt, albeit not excluded, that her atrial ectopy is causing her symptoms of dizziness Subjective Date/time seen: 06/29/23 07:29 Interval history: Cardiology follow up for PAC's Feeling well today. Report less dizziness. No palpitations or chest pain. Review of Systems Review of Systems: All systems reviewed & are unremarkable except as noted in HPI and below Constitutional: Constitutional: Denies body ache(s) and Denies excessive sweating Eyes: Eyes: Denies blurry vision ENT: Denies Normal hearing present Cardiovascular: Cardiovascular: Denies chest pain and Denies palpitations Respiratory: Respiratory: Denies hemoptysis Gastrointestinal: Gastrointestinal: Denies abdominal pain Genitourinary: Genitourinary: Denies hematuria Musculoskeletal: Musculoskeletal: Denies back pain Integumentary/Breasts: Skin/Breast: Denies erythema Neurologic: Denies Normal hearing present and Denies Abnormal speech present Psychiatric: Psychiatric: Denies anxiety Endocrine: Endocrine: Denies excessive sweating and Denies palpitations Hematologic/Lymphatic: Hematologic/Lymphatic: Denies easy bleeding Allergic/Immunologic: Allergic/Immunologic: Denies GI upset with certain foods Exam Narrative: Alert oriented appears to be in no acute distress Const: General: comfortable and no acute distress HENMT: Face/Nose/Sinus: Normal nares present Mouth: Yes moist mucous membranes Eyes: General: appearance normal, both eyes and all related structures Sclera: sclerae normal Neck: Neck: supple and no JVD Carotids: no bruits Chest: Other: No reproducible chest wall pain to palpation Resp: Effort & Inspection: normal respiratory effort Auscultation: clear to auscultation bilaterally Cardio: Rate: regular rate Rhythm: regular rhythm Heart sounds: no murmurs Other: Ectopy noted GI: Inspection: non-distended Auscultation: normal bowel sounds Skin: General skin exam: normal color Neuro: Cranial nerves: No Normal hearing present Speech: normal speech and No Abnormal speech present Sensory Exam: normal sensation Extrem: General: normal to inspection Psych: Mental Status: mental status grossly normal Affect: normal affect Objective Data Vital Signs Vital Signs: Vital Signs - 24 hr 06/28/23 13:01 06/28/23 10:00 06/28/23 12:00 Temperature Pulse Rate 79 Respiratory Rate Blood Pressure Pulse Oximetry Oxygen Delivery Room Air Room Air 06/28/23 13:40 06/28/23 14:50 06/28/23 14:53 Temperature 36.2 C L Pulse Rate 67 76 84 Respiratory Rate 16 Blood Pressure 139/57 L 101/58 L 106/59 L Pulse Oximetry 97 Oxygen Deliv
[2023-06-29 08:03] VITALS: PULSE 39; PULSE 62
[2023-06-29] MEDS: ASPIRIN 81 MG ENTERIC TABLET PO (08:42)
[2023-06-29] MEDS: MULTIVITAMINS THERAPEUTIC TAB (*BKC) 1 TABLET PO (08:42)
[2023-06-29] MEDS: lisinopriL 5 MG TABLET PO (08:43)
[2023-06-29] MEDS: ROSUVASTATIN 10 MG TABLET PO (08:43)
[2023-06-29] MEDS: PROPRANOLOL HCL 10 MG TABLET PO (08:43)
[2023-06-29] MEDS: MECLIZINE HCL 12.5 MG TABLET PO (09:25)
--- NOTE | 2023-06-29 11:46 | P.DS_ITS ---
DS: Admitting Diagnosis Discharge Date 06/29/2023 Admitting Diagnosis Dizziness, Hypertension, HLD, Abnormal UA DS: Discharge Diagnosis Discharge Diagnosis (1) Dizziness: Code(s): R42 - Dizziness and giddiness Status: Acute Assessment and Plan: * MRI brain without any acute findings, chronic age related changes only. * Carotid doppler showing less than 50% bilateral ICA stenosis. Also showing a cardiac arrhythmia. No known hx of known arrhythmias. Telemetry has shown bigeminy. * Continue to monitor labs, VS and tele * Non-orthostatic * ECHO and Neurology consult are currently pending. * 06/29/23, Discharge date, pt has remained non-orthostatic, MRI brain negative, ECHO showing normal LVSF of 60-65% and Grade 1 Diastolic dysfunction. Carotid dopplers showing less than 50% bilateral ICA Stenosis. CTA Head and neck show normal aging brain, no aneurysm or significant ICA stenosis. Neurology has consulted, Dr. Melchor, and she has no recommendations for further treatment, testing or follow up. Pt was trialed on Meclizine and reports that it did help with her dizziness. (2) Cardiac arrhythmia: Code(s): I49.9 - Cardiac arrhythmia, unspecified Status: Acute Assessment and Plan: * Pt's EKG's reviewed and show Bigemenous pattern. * Pt's Carotid US shows that there was an arrhythmia present upon performing the test. * Concern for potential undiagnosed arrhythmia as she has no known abnormal rhythm. * Pt is symptomatic with dizziness. * Consult Cardiology, appreciate their evaluation and recommendation. * Magnesium is 2.0, Calcium is 8.9, normal trop. * Subclinical hypothyroidism is present. * 06/29/23, Date of discharge, Pt continues to have Bigeminy and has been started on Propanolol 10 mg BID per Cardiology. Cardiology is of the opinion that there is no correlation in the pt's Bigemeny and the symptoms she is experiencing of dizziness. They have signed off of the case. (3) Subclinical hyperthyroidism: Code(s): E05.90 - Thyrotoxicosis, unspecified without thyrotoxic crisis or storm Status: Acute Assessment and Plan: * 06/29/23, Discharge Date, TSH is low at 0.105, but Free T4 is preserved at 0.93. Recommend following up in three months with repeat labs. Pt will also be referred to [facility], Dr. Sanedrs for follow up. Cardiology favors this dx as the possible cause of pt's symptoms. (4) Hypertension: Code(s): I10 - Essential (primary) hypertension Status: Chronic Assessment and Plan: * Continue to monitor BP * Continue Lisinopril 5 mg po daily. * 06/29/23, Discharge Date, Stable BP, will recommend continuation of home medications. (5) Abnormal urinalysis: Code(s): R82.90 - Unspecified abnormal findings in urine Status: Acute Assessment and Plan: * UA with 1+ Leukocyte esterase, and 11-20 WBC's in a setting of no epithelials. * Continue with Empiric Rocephin pending Urine culture result. * 06/29/23, Date of discharge, UA shows Gram negative Bacilli. No hx of ESBL or previous UTI. She received Rocephin while here and has symptomatically improved. Will discharge with Augmentin for continued therapy and continue to watch for culture sensitivity to change as needed. (6) Hyperlipidemia: Code(s): E78.5 - Hyperlipidemia, unspecified Status: Chronic Assessment and Plan: * Continue Rosuvastatin 10 mg po daily. DS: Summary Hospital Course Reason for hospitalization: Dizziness and giddiness, Weakness and abnormal UA Hospital Course: This is a very pleasant 83-year-old female
--- NOTE | 2023-06-29 11:46 | PM.DS ---
DS: Admitting Diagnosis Discharge Date 06/29/2023 Admitting Diagnosis Dizziness, Hypertension, HLD, Abnormal UA DS: Discharge Diagnosis Discharge Diagnosis (1) Dizziness: Code(s): R42 - Dizziness and giddiness Status: Acute Assessment and Plan: MRI brain without any acute findings, chronic age related changes only. Carotid doppler showing less than 50% bilateral ICA stenosis. Also showing a cardiac arrhythmia. No known hx of known arrhythmias. Telemetry has shown bigeminy. Continue to monitor labs, VS and tele Non-orthostatic ECHO and Neurology consult are currently pending. 06/29/23, Discharge date, pt has remained non-orthostatic, MRI brain negative, ECHO showing normal LVSF of 60-65% and Grade 1 Diastolic dysfunction. Carotid dopplers showing less than 50% bilateral ICA Stenosis. CTA Head and neck show normal aging brain, no aneurysm or significant ICA stenosis. Neurology has consulted, Dr. Melchor, and she has no recommendations for further treatment, testing or follow up. Pt was trialed on Meclizine and reports that it did help with her dizziness. (2) Cardiac arrhythmia: Code(s): I49.9 - Cardiac arrhythmia, unspecified Status: Acute Assessment and Plan: Pt's EKG's reviewed and show Bigemenous pattern. Pt's Carotid US shows that there was an arrhythmia present upon performing the test. Concern for potential undiagnosed arrhythmia as she has no known abnormal rhythm. Pt is symptomatic with dizziness. Consult Cardiology, appreciate their evaluation and recommendation. Magnesium is 2.0, Calcium is 8.9, normal trop. Subclinical hypothyroidism is present. 06/29/23, Date of discharge, Pt continues to have Bigeminy and has been started on Propanolol 10 mg BID per Cardiology. Cardiology is of the opinion that there is no correlation in the pt's Bigemeny and the symptoms she is experiencing of dizziness. They have signed off of the case. (3) Subclinical hyperthyroidism: Code(s): E05.90 - Thyrotoxicosis, unspecified without thyrotoxic crisis or storm Status: Acute Assessment and Plan: 06/29/23, Discharge Date, TSH is low at 0.105, but Free T4 is preserved at 0.93. Recommend following up in three months with repeat labs. Pt will also be referred to Occupational Nurse, Dr. Sanders for follow up. Cardiology favors this dx as the possible cause of pt's symptoms. (4) Hypertension: Code(s): I10 - Essential (primary) hypertension Status: Chronic Assessment and Plan: Continue to monitor BP Continue Lisinopril 5 mg po daily. 06/29/23, Discharge Date, Stable BP, will recommend continuation of home medications. (5) Abnormal urinalysis: Code(s): R82.90 - Unspecified abnormal findings in urine Status: Acute Assessment and Plan: UA with 1+ Leukocyte esterase, and 11-20 WBC's in a setting of no epithelials. Continue with Empiric Rocephin pending Urine culture result. 06/29/23, Date of discharge, UA shows Gram negative Bacilli. No hx of ESBL or previous UTI. She received Rocephin while here and has symptomatically improved. Will discharge with Augmentin for continued therapy and continue to watch for culture sensitivity to change as needed. (6) Hyperlipidemia: Code(s): E78.5 - Hyperlipidemia, unspecified Status: Chronic Assessment and Plan: Continue Rosuvastatin 10 mg po daily. DS: Summary Hospital Course Reason for hospitalization: Dizziness and giddiness, Weakness and abnormal UA Hospital Course: This is a very pleasant 83-year-old female with hypertension and hyperlipidemia who presented to the emergency department via private vehicle on 06/27/23 for evaluation of dizziness. She endorsed 3 days of feeling dizzy and unsteady on her feet prior to arrival. She had difficulties describing the dizziness and at times it sounds as though she is lightheaded although it sounds like she is also having some component of vertigo as she r
[2023-06-29 12:01] VITALS: PULSE 59
[2023-06-29 14:00] VITALS: BP 132/58; PULSE 73; RESP 16; TEMP 36.8; O2SAT 95
--- NOTE | 2023-07-05 07:40 | PC.NURSE ---
Pt dc on Augmentin. Pt dc on Amox/Clavu. It is susceptible to this med.
== END 2023-06-29 14:35 | disposition home or self-care (01) | DRG 690 ==
LOC: ANHED 17:16 → ANH2MED 17:43
PROVIDERS: Emergency Medicine; Physician Assistant; Admitting Provider Family Medicine; Emergency Provider Physician Assistant; PCP Family Medicine; Visit Provider Nurse Practitioner Adult Health
DX: N39.0 Urinary tract infection, site not specified (principal); I49.8 Other specified cardiac arrhythmias; B96.89 Other specified bacterial agents as the cause of diseases classified elsewhere; E78.5 Hyperlipidemia, unspecified; E05.90 Thyrotoxicosis, unspecified without thyrotoxic crisis or storm; I10 Essential (primary) hypertension; R73.9 Hyperglycemia, unspecified; Z90.49 Acquired absence of other specified parts of digestive tract; Z96.641 Presence of right artificial hip joint; Z79.82 Long term (current) use of aspirin
CPT/HCPCS: 36415; 70450; 70496; 70498; 70553; 71046; 80048; 80053; 81001; 83036; 83735; 83880; 84439; 84443; 84480; 84484; 85025; 87086; 87186; 87637; 93005; 93306; 93880; 96361; 96365; 96366; 97161; 97165; 99285; A9270; A9577; G0378; J0696; J7040; Q9967

== ENCOUNTER 2023-08-01 13:55 | Outpatient (CLI) | payer MEDICARE, SELFPAY ==
--- NOTE | ~2023-08-01 | US_ITS ---
EXAMINATION: US thyroid DATE: 08/01/2023 14:42 INDICATION: Thyroid nodule. TECHNIQUE: Multiple ultrasound images of the thyroid were obtained. COMPARISON: Ultrasound 05/25/2023 FINDINGS: The right thyroid lobe measures 4.6 x 1.7 x 1.5 cm. The left thyroid lobe measures 4.4 x 2.1 x 1.8 c m. In the right thyroid lobe, there is a 2.1 cm solid, hypoechoic, wider than tall nodule with lobul ated margin and punctate echogenic foci (TI-RADS TR5). In the right thyroid lobe, there is a 11 mm so lid, hypoechoic, wider than tall nodule with lobulated margin without echogenic foci (TR4). In the th yroid isthmus, there is a 25 mm cystic nodule (TR1). In the left thyroid lobe, there is a 2.5 cm mixe d cystic and solid, hypoechoic, wider than tall nodule with smooth margin without echogenic foci (TR3 ). In the left thyroid lobe, there is a 13 mm mixed cystic and solid, hypoechoic, wider than tall nod ule with lobulated margin without echogenic foci (TR4). IMPRESSION: 1. Multinodular goiter. Consider ultrasound-guided fine-needle aspiration of 2 nodules if clinically indicated given the patient's age. Reviewed, dictated and finalized at location A. N ORIGINATION SPECIALIST
== END 2023-08-01 13:56 | disposition home or self-care (01) ==
PROVIDERS: PCP Family Medicine; Visit Provider Nurse Practitioner Family
DX: E04.2 Nontoxic multinodular goiter (principal)
CPT/HCPCS: 76536

== ENCOUNTER 2023-08-14 12:21 | Outpatient (CLI) | payer MEDICARE, SELFPAY ==
--- NOTE | ~2023-08-14 | US_ITS ---
EXAMINATION: 1. US FNA w image guidance 2. US FNA additional DATE: 08/14/2023 14:04 INDICATION: Thyroid nodule. TECHNIQUE: The procedure and its benefits and risks were discussed with the patient. Risks specifically discusse d included bleeding. The patient verbalized understanding of the risks and agreed to proceed. The nec k was prepped and draped in the usual sterile manner. 1% lidocaine was used for local anesthesia. 6 passes were made with a 25G needle into the lesion in right thyroid lobe under ultrasound guidance. 6 passes were made with a 25-gauge needle into the lesion in left thyroid lobe under ultrasound herrera nce. There were no immediate complications. FINDINGS: Grayscale ultrasound images demonstrate needles advanced into a 2.1 cm nodule in right thyroid lobe f or biopsy. Grayscale ultrasound images demonstrate needles advanced into a 2.5 cm nodule in left thyr oid lobe for biopsy. IMPRESSION: 1. Ultrasound-guided fine needle aspiration of a right thyroid nodule. 2. Ultrasound-guided fine-needle aspiration of a left thyroid nodule. Reviewed, dictated and finalized at location A. IMPRESSION: 1. Ultrasound-guided fine needle aspiration of a right thyroid nodule. 2. Ultrasound-guided fine-needle aspiration of a left thyroid nodule.
== END 2023-08-14 12:22 | disposition home or self-care (01) ==
LOC: ANHIMG 12:22
PROVIDERS: PCP Family Medicine; Visit Provider Otolaryngology
DX: E04.1 Nontoxic single thyroid nodule (principal)
CPT/HCPCS: 10005; 10006; 88172; 88173; 88305

== ENCOUNTER 2024-03-04 11:15 | Outpatient (CLI) | payer MEDICARE, BC, SELFPAY ==
--- NOTE | ~2024-03-04 | US_ITS ---
Chest wall ULTRASOUND Ordering provider: Kelvin Javier DO History: . R22.2 - Localized swelling, mass and lump, trunk . Comparison: None. FINDINGS/impression: Complex echogenicity is noted measuring 4.9 x 1.6 x 4.3 cm. The differential includes enlarged lymph node, and less likely hematoma. Neurogenic tumor or other pathological masses is not excluded. Follow -up and further evaluation advised. Reviewed, dictated and finalized at location A.
== END 2024-03-04 11:16 | disposition home or self-care (01) ==
LOC: MICIMG 11:16
PROVIDERS: PCP Family Medicine; Visit Provider Family Medicine
DX: R22.2 Localized swelling, mass and lump, trunk (principal)
CPT/HCPCS: 76604

== ENCOUNTER 2024-03-17 10:45 | Outpatient (CLI) | payer MEDICARE, SELFPAY ==
--- NOTE | ~2024-03-17 | CT_ITS ---
Clinical Indication: Left upper chest wall mass CT Scan of the Chest with Contrast: Technique: Contiguous sections were acquired throughout the chest after intravenous administration of 75 cc of Omnipaque 350. Dose reduction technique was used on this scan by utilizing automated exposu re control and iterative reconstruction technique. The dose-length product (DLP) was 129.32 mGy-cm. Findings: Hypodense thyroid nodules are present, largest at the isthmus to left wall measuring 2 cm i n diameter. There is a 2.1 x 2.0 x 4.6 cm mass in the upper, anterior subcutaneous soft tissues of th e left chest, with extensive fat attenuation and a thin minimally hyperdense rim/perforation. There is no evidence of any significant mediastinal, hilar or axillary lymphadenopathy. There is no f illing defect in the pulmonary arterial tree to suggest pulmonary embolus. There is no evidence of ao rtic dissection or aneurysm. There is no evidence of pleural or pericardial effusion. The lungs are clear, similar to several tiny scattered granulomas. Images through the upper abdomen reveal no abnormalities. Impression: 2.1 x 2.0 x 4.6 cm fatty attenuation mass in the subcutaneous soft tissues at the upper left chest. T his is most compatible with lipoma, fat necrosis, or other benign predominantly fat attenuation lesio n. Reviewed, dictated and finalized at location . Impression: 2.1 x 2.0 x 4.6 cm fatty attenuation mass in the subcutaneous soft tissues at t he upper left chest. This is most compatible with lipoma, fat necrosis, or othe r benign predominantly fat attenuation lesion.
[2024-03-17 11:05] LABS: Estimated Glomerular Filt Rate > 60
== END 2024-03-17 10:46 | disposition home or self-care (01) ==
LOC: MICIMG 10:48
PROVIDERS: PCP Surgery; Visit Provider Family Medicine
DX: R92.2 Inconclusive mammogram (principal)
CPT/HCPCS: 71260; Q9967

== ENCOUNTER 2024-03-31 01:09 | Day surgery (SDC) | payer MEDICARE, SELFPAY ==
[2024-03-26 15:31] VITALS: BMI 21.7
--- NOTE | 2024-03-26 15:54 | PC.NURSE ---
Report to the Outpatient Waiting Room, entrance under the green pavilion located off [facility], at time ___12:30PM____ on date ___03/31/24____. Planned Procedure Time: ___2:30PM .? Time changes happen often and if your time is changed the preop area will call you the afternoon before. - You and your visitor will be asked to self-screen and do not enter if you have any COVID symptoms. Please call surgeon if you need to reschedule. - A mask is optional within the hospital at this time. Patients may have clear liquids (water, carbonated beverages, clear teas, apple juice) until 11:30AM, 3 hours prior to surgery with a maximum of 20 ounces. - No food from midnight until time of surgery and no smoking. Take only the following medications with a SIP of water on the morning of surgery: NONE DO NOT STOP ANY OF YOUR OTHER PRESCRIPTION MEDICATIONS PRIOR TO SURGERY EXCEPT THE FOLLOWING Medications to discontinue per physician HOLD ALL VITAMINS/SUPPLEMENTS 3 DAYS PRE-OP PER ANESTHESIA Date to take last dose 03/27/24 Please no make-up, nail hungarian, hairspray, perfume, deodorant, or body powder the day of surgery.? No jewelry (including any body piercings) or valuables the day of surgery, leave them at home.? Please take a shower or bath the night before, or the morning of, surgery with an antibacterial soap.? Wear comfortable, loose fitting clothing.? Children are encouraged to wear pajamas. - Jewelry must be removed prior to entering the operating room.? Rings and piercings that are not removed may be cut off. - The hospital will not accept responsibility for valuables.? - Please leave all valuables, including medications, at home the day of surgery. If you are going home after surgery, a licensed front end loader driver must drive you home.? - NO public transportation without another adult if you receive anesthesia. - We recommend that an adult stay with you for 24 hours following discharge. - We also recommend that you do not drive, make important decision, drink alcoholic beverages, or take any drugs that were not prescribed by your health care provider for at least 24 hours after your discharge time. For Pediatric surgeries, we recommend two adults accompany the child home. Follow any additional instructions given to you from your surgeon. Telephone instructions given to ____PATIENT & SON, WARREN and asked if any additional questions and then verbalized understanding. Patient advised to call surgeon office or pre surgery nurse liaison [phone] if any additional questions.
--- NOTE | 2024-03-30 15:55 | P.PNAN_ITS ---
Anes - Eval Pre Procedure Procedure: Operation Date: 03/31/24 14:30 Proposed Procedures p Excisional Biopsy of Upper Left Chest Wall Subcutaneous Mass - Lacey Mix MD Date/Time: 03/30/24 15:55 Pre Op Diagnosis: subcutaneous mass Patient Data Age: 84 Gender: F Height: 1.55 m Weight: 52 kg Allergies Allergy/AdvReac Type Severity Reaction Status Date / Time No Known Allergies Allergy Unknown Verified 03/26/24 15:28 Home Medications Medication Instructions Recorded Confirmed Type aspirin 81 mg capsule 81 mg PO DAILY 06/27/23 03/26/24 History lisinopril 5 mg tablet 5 mg PO DAILY 06/27/23 03/26/24 History rosuvastatin 10 mg tablet 10 mg PO DAILY 06/27/23 03/26/24 History multivitamin 1 tablet PO DAILY 03/26/24 03/26/24 History Patient hx anesthesia problems: none Family hx anesthesia problems: none Results Review: All pre-operative results and documents have been reviewed as part of the pre- operative evaluation. [facility] Past Medical History Medical History Cardiac arrhythmia Hyperlipidemia Hypertension Subclinical hyperthyroidism Subclinical hypothyroidism Surgical History Surgical History History of cholecystectomy History of right hip replacement Family History Family History Mother Acute myocardial infarction Other Family history non-contributory Social History Social History Social History: Surrogate medical decision maker: Danii Saba, daughter. Code status: Full code. Smoking status: Never smoker Alcohol intake: never Substance use: never Do You Feel Safe in your Home?: Yes Lack of Transportation: No Lack of Food: Never True Current Housing: I Have Housing Concerned About Future Housing: No Difficulty Paying Gas/Electric Bills: No Difficulty Paying for Meds: No Currently Unemployed: No Education: Decline to Answer Difficulty w/ Childcare or Family Care: No Living arrangements: with family Additional living arrangements comments: [facility] Spiritual care concerns: No Exam Day of Procedure 03/30/24 15:55
--- NOTE | 2024-03-31 07:29 | WPDHPUPDATE1 ---
History and Physical Update Update Date/Time: 03/31/24 07:29 History and Physical has been reviewed, including an updated exam of the patient. There are NO changes in the patient's condition. Risks, benefits, and alternatives have been discussed and questions answered. Patient agrees to proceed with procedure.
[2024-03-31 13:09] VITALS: BP 168/53; PULSE 40; RESP 18; TEMP 37; O2SAT 97
[2024-03-31] MEDS: LACTATED RINGERS 1,000 ML 30 ML IV CONT (13:14)
[2024-03-31 13:30] VITALS: BP 144/61
--- NOTE | 2024-03-31 13:47 | WPDANESEPPF ---
Anes - Initial Pre Proc Eval Procedure: Operation Date: 03/31/24 14:30 Proposed Procedures p Excisional Biopsy of Upper Left Chest Wall Subcutaneous Mass - Lacey Mix MD Date/Time: 03/31/24 13:47 Surgeon: Lacey Mix MD Pre Op Diagnosis: subcutaneous mass Patient Data Age: 84 Gender: F Height: 1.55 m Weight: 53.8 kg Last Vital Signs Temp 37.0 C 03/31/24 13:09 Pulse 40 L 03/31/24 13:09 Resp 18 03/31/24 13:09 BP 144/61 H 03/31/24 13:30 Pulse Ox 97 03/31/24 13:09 O2 Del Method Room Air 03/31/24 13:09 Allergies Allergy/AdvReac Type Severity Reaction Status Date / Time No Known Allergies Allergy Unknown Verified 03/31/24 13:08 Home Medications Medication Instructions Recorded Confirmed Type aspirin 81 mg capsule 81 mg PO DAILY 06/27/23 03/26/24 History lisinopril 5 mg tablet 5 mg PO DAILY 06/27/23 03/26/24 History rosuvastatin 10 mg tablet 10 mg PO DAILY 06/27/23 03/26/24 History multivitamin 1 tablet PO DAILY 03/26/24 03/31/24 History hydrocodone 5 mg-acetaminophen 325 1 tablet PO Q6H PRN pain #10 tabs 03/31/24 Rx mg tablet Patient hx anesthesia problems: none Family hx anesthesia problems: none Results Review: All pre-operative results and documents have been reviewed as part of the pre-operative evaluation. [facility] Past Medical History Medical History Cardiac arrhythmia Hyperlipidemia Hypertension Subclinical hyperthyroidism Subclinical hypothyroidism Surgical History Surgical History History of cholecystectomy History of right hip replacement Family History Family History Mother Acute myocardial infarction Other Family history non-contributory Social History Social History Social History: Surrogate medical decision maker: Danii Saba, daughter. Code status: Full code. Smoking status: Never smoker Alcohol intake: never Substance use: never Do You Feel Safe in your Home?: Yes Lack of Transportation: No Lack of Food: Never True Current Housing: I Have Housing Concerned About Future Housing: No Difficulty Paying Gas/Electric Bills: No Difficulty Paying for Meds: No Currently Unemployed: No Education: Decline to Answer Difficulty w/ Childcare or Family Care: No Living arrangements: with family Additional living arrangements comments: [place] Spiritual care concerns: No Anes - Eval Final PreProcedure Day of Procedure 03/31/24 13:47 Patient weight: normal Heart: regular rate and rhythm Lungs: clear to auscultation Airway: Mallampati scale class III Neurological: alert and oriented Last oral intake: >/= 8 hours ASA classification: III Emergent: no Anesthetic plan: proceed Anesthesia type and monitoring: general GIVS and standard monitoring Other findings: no teeth Results Review: All pre-operative results and documents have been reviewed as part of the pre-operative evaluation. Informed Consent: The patient's anesthetic plan and its attendant risks and benefits were discussed with the patient/family/POA. Questions were solicited and answers provided to the satisfaction of the patient/family/POA.
[2024-03-31] MEDS: ceFAZolin 2 GM/D5W 50 ML 2 GM/50 ML BAG IVPB (13:58)
[2024-03-31] MEDS: BUPIVACAINE/EPINEPHRINE 0.5% 50 ML VIAL 20 ML INFILTRATE (14:21)
--- NOTE | 2024-03-31 14:28 | W.PM.PROC2 ---
Procedure Note - Detailed Date of Procedure 03/31/24 Pre-op Diagnosis left chest wall subcutaneous mass Post-op Diagnosis Same Procedure Performed excisional biopsy left chest wall subcutaneous mass measuring 11 x 5 cm Surgeon Lacey Mix MD Anesthesia MAC and Local Indications 84-year-old female presenting to the office with a enlarging left chest wall subcutaneous mass. Patient reports that the area is somewhat symptomatic especially to pressure and palpation. Findings 11 x 5 cm subcutaneous left chest wall mass most consistent with lipoma Description of Procedure The patient was taken to the operating room and placed in the supine position. After adequate induction of MAC anesthesia, the patient was prepped and draped in the normal sterile fashion. A time-out was then done to verify the patient's identity, as well as the procedure being performed. Local anesthetic was then placed into the anticipated incision and around the mass. Then made incision with a 15 blade scalpel in the dermis overlying the mass. This incision was carried down into the subcutaneous tissue. A well-circumscribed mass was encountered in the subcutaneous tissue. It was well encapsulated. I was able to bluntly dissect around this mass and the posterior portions of the mass were noted to be adherent to the underlying fascia. The mass did not extend into the fascia or the underlying muscle. I was able to excise the mass in full and it measured 11 x 5 cm. It will be sent to pathology for further review. No other pathology was noted in the cavity. Hemostasis was noted. Further local anesthetic was placed. I then closed the subcutaneous tissue with 3-0 Vicryl suture. The skin was closed with 4-0 Monocryl subcuticular suture. Dermabond was placed on the wound. The patient tolerated the procedure well. She was alert and awake in the operating room postoperatively. She will be sent to the recovery room in stable condition. Estimated Blood Loss 10 Pathology Yes Complications No immediate complications Condition Stable Disposition PACU [facility] Billing Surgery - Charge Forward: Surgery Billing
[2024-03-31 14:37] VITALS: BP 110/55; PULSE 76; RESP 12; O2SAT 97
[2024-03-31 14:45] VITALS: O2SAT 97
[2024-03-31 15:00] VITALS: BP 137/62; PULSE 66; RESP 16; O2SAT 93
[2024-03-31 15:22] VITALS: BP 130/55; PULSE 68; RESP 16
== END 2024-03-31 15:32 | disposition home or self-care (01) ==
PROVIDERS: PCP Family Medicine; Visit Provider Surgery
PROC: (CPT 21552; principal; 2024-03-31 14:30)
DX: D17.1 Benign lipomatous neoplasm of skin and subcutaneous tissue of trunk (principal); I10 Essential (primary) hypertension; E78.5 Hyperlipidemia, unspecified; I49.9 Cardiac arrhythmia, unspecified; E05.90 Thyrotoxicosis, unspecified without thyrotoxic crisis or storm; E03.8 Other specified hypothyroidism; Z79.82 Long term (current) use of aspirin; Z79.891 Long term (current) use of opiate analgesic; Z98.890 Other specified postprocedural states; Z90.49 Acquired absence of other specified parts of digestive tract; Z82.49 Family history of ischemic heart disease and other diseases of the circulatory system
CPT/HCPCS: 21552; 88304; J0690; J2003; J2405; J2704; J3010; J7120

== ENCOUNTER 2024-08-18 08:18 | Outpatient (CLI) | payer MEDICARE, SELFPAY ==
--- NOTE | ~2024-08-18 | NM_ITS ---
EXAMINATION: NM kvng stress w perfusion DATE: 08/18/2024 10:24 INDICATION: Chest pain TECHNIQUE: Rest images were obtained following intravenous administration of 9.8 mCi Tc99m tetrofosmi n (Myoview). The patient was infused intravenously with Lexiscan (Regadenoson). Then, 32.4 mCi Tc99m tetrofosmin (Myoview) was administered intravenously, and stress images were obtained. Data was recon structed into short axis and horizontal and vertical long axis SPECT images. Gated SPECT images were also obtained. COMPARISON: None. FINDINGS: There is no definite reversible or fixed perfusion abnormality to suggest ischemia or infar ction. There is normal left ventricular chamber size, wall motion and ejection fraction. Left ventr icular ejection fraction measures >70%. IMPRESSION: 1. Normal myocardial perfusion at rest and during stress. 2. Left ventricular ejection fraction measuring >70%. Reviewed, dictated and finalized at location A.
--- OUTSIDE RECORDS SUMMARY | 2024-08-18 08:39 | XMS_ITS | Data Portability ---
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 [email or web address] Not available 03/09/2022 11:54:49 03/28/2022 03/28/2022 82-year-old female 2 weeks status post right total hip arthroplasty. [email or web address] Not available 03/28/2022 14:41:49 04/25/2022 04/25/2022 A 2-year-old female status post 6 weeks from her right total hip arthroplasty on 03/13/2022. [email or web address] Not available 04/25/2022 14:27:41 Plan of Treatment Reminders Order Date Submit Date Provider Last Modified By Organization Details Last Modified Time Details Appointments None recorded. Lab None recorded. Referral None recorded. Procedures None recorded. Surgeries None recorded. Imaging XR, hip, unilateral, 2 or 3 view 2021 022 [email or web address] [facility], [address] [place], [address], 18:10:25 XR, hip, unilateral, 2 or 3 view 2021 022 [email or web address] [facility], [address] [place], [address], 13:13:13 XR, lumbosacral spine, 2 or 3 view 2021 022 [email or web address] [facility], [address], [place], [address], 13:13:13 Medication Orders None recorded. Patient TargetsNo targets recorded. Patient Instructions Encounter Date Encounter Id Patient Instructions Last Modified By Organization Details Last Modified Time 03/09/2022 [id number] At this time, patient would benefit significantly from a right total hip arthroplasty. 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 Patient would benefit from a right total hip arthroplasty. Patient like to proceed with surgery at this time. Patient has failed physical therapy as well as other conservative measures. Patient proceed with right total hip arthroplasty 03/13/22 at [facility]. The patient is refractory to conservative management including physical therapy and anti-inflammatory medication, has degenerative X-ray changes, and has disabling pain which interferes with activities of daily living, self care skills, and desired activity level. The above evaluation, diagnosis, and plan of care including our duties, our role in the patient's overall care,and our expectations of the patient's responsibilities in our treatment plan were discussed with the patient and all questions and concerns were addressed. I also had a detailed discussion today with the patient concerning the proposed procedure. I explained the procedure in great detail using layman's terms including the risks, benefits, prognosis, complications, and alternatives. The generally agreed upon risks of the specific procedure as well as potential risks of any operative procedure including, but not limited to, blood loss, infection, postoperative pain, stiffness, nerve injury, blood vessel injury, tendon injury, cartilage injury, loss of function of any limb or organ system partial or complete, temporary or permanent, partial or complete paralysis, paraplegia, quadriplegia, disfiguring scar, brain damage, respiratory arrest,multi-system failure, cardiac arrest and/or , and uncertainty of outcome were discussed. The patient understands that surgery may not alleviate every symptom or problem for which the procedure is being done. The patient also understands that there is the chance improvement may not occur, symptoms may become worse, as well as the possibility of additional symptoms developing, or the need for additional surgery. No guarantees were given as to the results of the procedure or final treatment outcome. All the patient's questions were answered to their satisfaction. Informed consent was thus obtained and the patient verbalizes understanding, accepts all risks, and wishes to proceed with the procedure. This encounter was completed with the assistance of voice recognition software. Interpretive errors may exist that were not detected at the time of sign off review and may be subject to subsequent amendment. [email or web address] Not available 03/09/2022 12:01:47 03/28/2022 [id number] Continue postop total hip rehab and progress. I will see her back in 1 month. The above evaluation, diagnosis, and plan of care including our duties, our role in the patient's overall care, and our expectations of the patient's responsibilities in our treatment plan were discussed with the patient and all questions and concerns were addressed. This encounter was completed with the assistance of voice recognition software. Interpretive errors may exist that were not detected at the time of sign off review and may be subject to subsequent amendment. [email or web address] Not available 03/28/2022 14:42:56 04/25/2022 [id number] Plan 1. Continue ljjk-jjr-oejiuyr analgesics p.r.n. 2. Continue home strengthening and stretching exercises. Work on abduction strengthening. 3. Plan to see the patient back in 6 weeks for recheck and repeat radiographs. The above evaluation, diagnosis, and plan of care including our duties, our role in the patient's overall care, and our expectations of the patient's responsibilities in our treatment plan were discussed with the patient and all questions and concerns were addressed. This encounter was completed with the assistance of voice recognition software. Interpretive errors may exist that were not detected at the time of sign off review and may be subject to subsequent amendment. [email or web address] Not available 04/25/2022 14:33:43 Reason for Referral None Reported. Results Created Date Observation Date Name Description Value Unit Range Abnormal Flag Note LastModifiedBy Organization Detail LastModifiedTime 03/06/20 XR, hip, unila teral , 2 or 3 view No observ ation record ed. [email or web address] [facility] [id number] [place], [address], 03/09/2022 11:55:59 03/06/20 XR, lumbo sacra l spine , 2 or 3 view No observ ation record ed. [address], [address], 03/09/2022 11:58:59 03/13/2003/13/2022 imagi ng/di agnos tic resul t No observ ation record ed. [facility] [address], [place], [address], 03/13/2022 16:37:49 03/27/20 XR, hip, unila teral , 2 or 3 view No observ ation record ed. [email or web address] [address], [address], 03/28/2022 14:42:37 Result Notes None recorded. Procedures Surgical History Date Name Laterality Status Provider Name and Address Organization Details Recorded Time 03/13/20 TOTAL HIP ARTHROPLASTY (SURG) completed Not Available [facility] 03/13/2022 16:41:35 hysterectomy completed [facility] 03/09/2022 10:19:02 gallbladder endoscopy completed [facility] 03/09/2022 10:19:24 Imaging Results Imaging Date Name Status [facility]Modified by [facility] Details LastModified Time 03/06/2022 XR, hip, unilateral, 2 or 3 view completed [address], [address], 03/09/2022 11:55:59 03/06/2022 XR, lumbosacral spine, 2 or 3 view completed [address], [address], 03/09/2022 11:58:59 03/13/2022 imaging/diagnos tic result active [facility] [address], [place], [address], 03/13/2022 16:37:49 03/27/2022 XR, hip, unilateral, 2 or 3 view completed [facility] [address] [facility], [place], [address], 03/28/2022 14:42:37 Procedure Notes None recorded. Medical Equipment None Reported. Allergies No known drug allergies Medications Name Sig Start Date Stop Date Status Note LastModified by Organization Details LastModified Time Colace 100 mg capsule Take 1 capsule every day by oral route for 60 days. 03/28 completed Not Available Not Available Not Available hydrocodone 5 mg-acetamino phen 325 mg tablet TAKE 1 TABLET BY MOUTH EVERY 6 HOURS 03/28 completed Not Available Not Available Not Available Mendel Low Dose Aspirin 81 mg tablet,delay ed release Take 1 tablet every day by oral route. active Not Available Not Available No t Available lisinopril 5 mg tablet TAKE 1 TABLET BY MOUTH EVERY DAY active Not Available Not Available No t Available Bactrim DS 800 mg-160 mg tablet Take 1 tablet every 12 hours by oral route for 3 days. 03/28 completed Not Available Not Available Not Available rosuvastatin 20 mg tablet Take 1 tablet every day by oral route. active Not Available Not Available No t Available lisinopril active Not Available Not Av ailable Not Available Vitals Date Recorded Body weight Body mass index (BMI) Body height Body temperature Systolic blood pressure Diastolic blood pressure Provider Name and Address Organization Details Last Updated DateTime 2 11007 g 21.2 kg/m2 157.48 cm 97.1 [degF] 129 mm[Hg] 55 mm[Hg] Millie Moy [facility], 2 10:14:54 Date Recorded Body height Body mass index (BMI) Body weight Body temperature Heart rate Systolic blood pressure Diastolic blood pressure Provider Name and Address Organization Details Last Updated DateTime 2 157.48 cm 21.4 kg/m2 74687.3 1 g 97.3 [degF] 53 /min 115 mm[Hg] 51 mm[Hg] Luis Roblero [facility], 2 13:54:03 Date Recorded Body height Body mass index (BMI) Body weight Body temperature Heart rate Systolic blood pressure Diastolic blood pressure Provider Name and Address Organization Details Last Updated DateTime 2 157.48 cm 20.4 kg/m2 35226.6 3 g 97.9 [degF] 72 /min 135 mm[Hg] 59 mm[Hg] Luiza Cano [facility], 2 13:45:04 Social History Question Answer Notes LastModified by Organizat ion Details LastModified Time Tobacco Smoking Status Never Smoker updated... ..04/25/20....EL Luiza diaz ID - [facility], 04/25/2022 13:37:28 Do You Have An Advance Directive? Yes Son- Lyndon Owens. Updated... ..04/25/20....[facility] Information not available 04/25/2022 What Is Your Level Of Alcohol Consumption? None Updated... ..04/25/20....EL Information not available 04/25/2022 Is Blood Transfusion Acceptable In An Emergency? Yes Updated... ..04/25/20....EL Information not available 04/25/2022 What Is Your Level Of Caffeine Consumption? Moderate Updated... ..04/25/20....EL Information not available 04/25/2022 In The 14 Days Before Symptom Onset, Have You Had Close Contact With A Laboratory-confir med COVID-19 While That Case Was Ill? No Updated... ..04/25/20....EL Information not available 04/25/2022 In The 14 Days Before Symptom Onset, Have You Had Close Contact With A Person Who Is Under Investigation For COVID-19 While That Person Was Ill? No Updated... ..04/25/20....EL Information not available 04/25/2022 Have You Been To An Area Known To Be High Risk For COVID-19? No Updated... ..04/25/20....EL Information not available 04/25/2022 Are You Currently Employed? No Retired... Information not available 04/25/2022 How Many Times Per Week Do You Exercise? 5-7 Times Per Week [email or web address] Information not available 03/09/2022 Which Of Your Hands Is Dominant? Right [email or web address] Information not available 03/09/2022 Amish Preference Congregational Information not available 03/28/2022 Ethnic Identity [email or web address] Informati on not available 03/28/2022 Diet Type Regular [email or web address] Information no t available 03/28/2022 Education Level High School GED [email or web address] Informat ion not available 03/28/2022 Current Resident Of Retirement Or Rehab Facility No [email or web address] Information not available 03/28/2022 If Yes, Name And Phone Number Of Facility No Information not available 03/28/2022 What Is Your Relationship Status? [email or web address] Information not available 03/09/2022 Do You Use Any Illicit Or Recreational Drugs? No [email or web address] Information not available 03/09/2022 Do You Or Have You Ever Used Any Other Forms Of Tobacco Or Nicotine? No [email or web address] Information not available 03/09/2022 Sex: Unknown Functional Status Question Answer Note LastModified by Organization D etails LastModified Time What is your exercise level? Heavy Information not available 04/25/2022 Mental Status None recorded. Family History Nothing Reported Notes:updated.....04/25/2022 ....[facility] Medical History Condition Response Pancreatitis N HEME - Anemia N Gout N Hyperthyroidism N Rheumatoid arthritis N Irritable bowel syndrome N Osteoarthrosis N HEENT - Wears corrective lenses N Depression N COPD N Pneumonia N Peptic ulcer disease N History of head and neck tumor N NEURO - Cerebral palsy N Skin infection N Active aids N Mitral valve prolapse N Renal failure N HIV positive N GI - GERD N Joint injury N Hypercholesterolemia Y Hypoparathyroidism N MS - Fracture N Fibromyalgia N Cerebrovascular accident N Neuromuscular disease N PSYCHE - Claustrophobia N Poliomyelitis / post polio N ENDOCRINE - Obesity N Hearing impairment Y Dysvascular amputation LE N Other diagnosis Y Anxiety disorder N Deformity N CHEST - Sleep apnea N Crohn's disease N Pulmonary embolism N Chronic venous stasis disease N Psychosis N Coagulopathy N No Past Medical History N Asthma N Blood clotting disorder N Cardiac valvular disease N Are you under pain mgmt treatment N Fragility fracture N Vertigo N Hepatitis N Neuropathy N Coronary artery disease N Pressure sore N Diabetes Type II (NIDDM) N Skin ulceration N Bipolar disorder N Glaucoma N Legally blind N Hypothyroidism N Sinusitis / sinus infection N Pacemaker N Peripheral vascular disease N Cystic fibrosis N Cholecystitis N Sickle cell N VASCULAR - Deep venous thrombosis N Osteomyelitis N SKIN - Rash N INFECTIOUS - Current active infection N Diabetic Monitor N Heart murmur N Previous myocadial infarction N Itp / ttp N Lupus Arthritis N Congestive heart failure N Skin bruising N Diabetes Type I (IDDM) N HEART - Arrhythmia N Chemically anticoagulated N Dental caries / gingivitis N Fracture non-union N Dysvascular gangrene N - Cystitis N Renal dialysis N Diverticulitis N Dementia N Ulcerative colitis N Seizure disorder N MISC - Cancer N Organ transplant N Hypertension N Osteoporosis N Gynecological History Statement/Question Response Number miscarriages 0 Period status Menopause due to hys terectomy Periods regular Not applicable LMP Interval Not applicable Contraception method None Age at Menarche 13 Number times 4 Number deliveries 4 Obstetrics History GPAL:G 0 P 0 0 0 0 Past Encounters Encounter ID Performer Location Encounter Start Date Encounter Closed Date Diagnosis/Indication Diagnosis SNOMED-CT Code Diagnosis ICD10 Code Diagnosis Note [id number] French Wilson MD [address] [address] 03/09/2022 09:57:17 03/09/2022 12:48:42 Pain in right hip joint 2562465440 74602 M25.100 [id number] French Wilson MD [address] [address] 03/28/2022 13:34:09 03/28/2022 14:38:58 Osteoarthritis of hip 907040617 M16.11 [id number] French Wilson MD [address] [address] 04/25/2022 13:16:16 04/25/2022 14:35:31 Osteoarthritis of hip 695452502 M16.11 Health Concerns Section Related Observation LastModified by Organization Detai ls LastModified Time None Recorded Concern Status LastModified by Organization Details LastModified Time None Recorded Advance Directives Directive Y: SonMatheus Owesn.update d.....04/25/2022....[facility] Payers Encounter Date Sequence Insurance Name Policy Number Policy Adler Covered Member ID Adler Member ID Guarantor Name 03/09/2022 1 [place]ARE[place] (MEDICARE) Samantha Owens [id number] Samantha Owens 03/09/2022 2 [place] [id number] Lyndon Owens [id number] Samantha Owens 03/28/2022 1 [place] Samantha Owens [id number] Samantha Owens 03/28/2022 2 [place] [id number] Lyndon Owens [id number] Samantha Owens 04/25/2022 1 [place] Samantha Owens [id number] Samantha Owens 04/25/2022 2 [place] [id number] Lyndon Owens [id number] Samantha Owens Notes Date Note Type Note Provider Name and Address Organization Details Recorded Time 03/09/2022 text/html 03/09/22- This is my first evaluation for this 82 year old female new patient complaining of right hip pain. She states pain begin about 1 year ago and progressively worsening. She complains of pain in the groin that radiates into her mid thigh. She describes the pain as sharp in nature and constant. She has increased pain with going from the seated to stand position, internal and external rotation, as well as ambulation. She also complains of weakness in the hip. She denies any previous surgeries or injection. She states she attended 1 physical therapy appointment in mid January however was told by the therapist there was nothing that would be beneficial to her until she had a hip replacement. She takes ibuprofen intermittently that she states does help with her symptoms. French Wilson MD [address] [place], [address], [facility] - [facility], 03/09/2022 12:11:55 03/28/2022 text/html 03/28/22- This i s my first postoperative evaluation for this 82 year old female established patient who is 2 weeks status post right total hip arthroplasty done 03/13/22. At this time, she states she is progressing well and only complains of minor discomfort in the groin area that she states seems to be getting better daily. She is in outpatient therapy twice a week and ambulating full weight bearing with a rolling walker for assistance. 03/09/22- This is my first evaluation for this 82 year old female new patient complaining of right hip pain. She states pain begin about 1 year ago and progressively worsening. She complains of pain in the groin that radiates into her mid thigh. She describes the pain as sharp in nature and constant. She has increased pain with going from the seated to stand position, internal and external rotation, as well as ambulation. She also complains of weakness in the hip. She denies any previous surgeries or injection. She states she attended 1 physical therapy appointment in mid January however was told by the therapist there was nothing that would be beneficial to her until she had a hip replacement. She takes ibuprofen intermittently that she states does help with her symptoms. French Wilson MD [address] [place], [address], [facility] - [facility], 03/28/2022 14:43:06 04/25/2022 text/html 04/25/22- This i s my second postoperative evaluation for this 82 year old female established patient who is 6 weeks status post right total hip arthroplasty done 03/13/22. At her last visit she was to continue outpatient therapy and progression. At this time, she is not having any pain in her hip but some nagging pain in her lower back from walking about 3 laps around her yard she has been taking Tylenol with some relief. She has been doing her home PT exercises since she has finished her course of outpatient physical therapy. She sometimes uses a cane for ambulation. She has no complaints and overall progressing well. 03/28/22- This is my first postoperative evaluation for this 82 year old female established patient who is 2 weeks status post right total hip arthroplasty done 03/13/22. At this time, she states she is progressing well and only complains of minor discomfort in the groin area that she states seems to be getting better daily. She is in outpatient therapy twice a week and ambulating full weight bearing with a rolling walker for assistance. 03/09/22- This is my first evaluation for this 82 year old female new patient complaining of right hip pain. She states pain begin about 1 year ago and progressively worsening. She complains of pain in the groin that radiates into her mid thigh. She describes the pain as sharp in nature and constant. She has increased pain with going from the seated to stand position, internal and external rotation, as well as ambulation. She also complains of weakness in the hip. She denies any previous surgeries or injection. She states she attended 1 physical therapy appointment in mid January however was told by the therapist there was nothing that would be beneficial to her until she had a hip replacement. She takes ibuprofen intermittently that she states does help with her symptoms. French Wilson MD [address] [place], [address], [facility] - [facility], 04/25/2022 14:39:42 OBGyn Episode No OBEpisode recorded.
--- OUTSIDE RECORDS SUMMARY | 2024-08-18 08:39 | XMS_ITS | Clinical Summary ---
Author Organization [facility] Address [address] [place] [address] Care Team Providers Care Grade Setter Name Role Phone Shellie Prince MD Primary Care Provider + Allergies No known active allergies Medications aspirin 81 mg enteric coated tablet Take 1 tablet (81 mg total) by mouth daily Active losartan (COZAAR) 50 mg tablet Take 1 tablet (50 mg total) by mouth nightly 90 tablet 6 4 Active NIFEdipine (NIFEdipine XL) 30 mg 24 hr tabletIndications :Primary hypertension Take 1 tablet (30 mg total) by mouth daily 90 tablet 3 5 06/10/19 26 Active rosuvastatin (CRESTOR) 10 mg tablet TAKE 1 TABLET(10 MG) BY MOUTH EVERY NIGHT 90 tablet 3 5 Active Active Problems Problem Noted Date Diagnosed Date Biliary calculus 04/12/2016 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 Encounters Date Type Department Care Team Description 06/05/2024 Telephone [facility] Cardiology [address] [facility] [address] [place] [address] Fish Moore MD Foot Swelling; Joint Swelling from Last 3 Months Surgical History Surgery Date Site/Laterality Comments HYSTERECTOMY CHOLECYSTECTOMY Medical History Medical History Date Comments Hypertension Hypertension Gastroesophageal reflux disease GERD Family History Medical History Relation Name Comments Cancer Brother 1 Leon Heart attack Brother 2 Emmit Alzheimer's disease Father Heart attack Mother Alzheimer's disease Sister Jew Relation Name Status Comments Brother 1 Leon (Age 73) Brother 2 Emmit (Age 84) Father (Age 89) Mother (Age 65) Sister Telly (Age 64) Social History Tobacco Use Types Packs/Day Years Used Date Smoking Tobacco: Never Smokeless Tobacco: Never Tobacco Cessation:Counseling Given: Not Answered Alcohol Use Standard Drinks/Week Comments Not Currently 0 (1 standard drink = 0.6 oz pur e alcohol) Comments Unknown Sex and Gender Information Value Date Recorded Sex Assigned at Not on file Legal Sex Female 3:09 AM SOFTWARE QUALITY MANAGER Gender Identity Not on file Sexual Orientation Not on file Obstetrics History Last Filed Vital Signs Vital Sign Reading Time Taken Comments Blood Pressure 150/72 05/07/2024 10:32 AM SOFTWARE QUALITY MANAGER Pulse 71 05/07/2024 10:32 AM SOFTWARE QUALITY MANAGER Temperature - - Respiratory Rate - - Oxygen Saturation 98% 05/07/2024 10:32 AM SOFTWARE QUALITY MANAGER Inhaled Oxygen Concentration - - Weight 54.4 kg (120 lb) 05/07/2024 10:32 AM SOFTWARE QUALITY MANAGER Height 157.5 cm (5' 2 ) 05/07/2024 10:32 AM SOFTWARE QUALITY MANAGER Body Mass Index 21.95 05/07/2024 10:32 AM SOFTWARE QUALITY MANAGER Plan of Treatment Health Maintenance Due Date Last Done Comments Depression Screening 1940 Fall Risk Assessment 1940 Osteoporosis Screening-Bone Density Scan 1940 DTaP/Tdap/Td Vaccine (1 - Tdap) 02/22/1951 Hepatitis B Screening 02/22/1958 Pneumococcal vaccine 65+ (1 of 1 - PCV) 02/22/1990 Zoster Vaccine (1 of 2) 02/22/1990 Well Visit 65+ 02/22/2005 Influenza Vaccine (#1) 2024 [place] [address] [place] [address] [facility] [place] [address] MEDICARE [facility] Care Teams Grade Setter Relationship Specialty Start Date End Date Shellie Prince MD [address] [place] [address] [place] [address] PCP - General Family Medicine 06/09/20
--- OUTSIDE RECORDS SUMMARY | 2024-08-18 08:39 | XMS_ITS | Referral Summary ---
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 Social History Tobacco Use Types Packs/Day Years Used Date Smoking Tobacco: Never Smokeless Tobacco: Never Tobacco Cessation:Counseling Given: Not Answered Alcohol Use Standard Drinks/Week Comments Not Currently 0 (1 standard drink = 0.6 oz pur e alcohol) Comments Unknown Sex and Gender Information Value Date Recorded Sex Assigned at Not on file Legal Sex Female 3:09 AM [employer] Gender Identity Not on file Sexual Orientation Not on file Last Filed Vital Signs Vital Sign Reading Time Taken Comments Blood Pressure 150/72 05/07/2024 10:32 AM [employer] Pulse 71 05/07/2024 10:32 AM [employer] Temperature - - Respiratory Rate - - Oxygen Saturation 98% 05/07/2024 10:32 AM [employer] Inhaled Oxygen Concentration - - Weight 54.4 kg (120 lb) 05/07/2024 10:32 AM [employer] Height 157.5 cm (5' 2 ) 05/07/2024 10:32 AM [employer] Body Mass Index 21.95 05/07/2024 10:32 AM [employer] Plan of Treatment Not on file Insurance MEDICARE [facility] MEDICARE [facility] Care Teams Director Packaging Relationship Specialty Start Date End Date Shellie Prince MD [address] [place] [place] [address] PCP - General Family Medicine 06/09/20
--- OUTSIDE RECORDS SUMMARY | 2024-08-18 08:40 | XMS_ITS | Data Portability ---
Author Organization [place] - [facility] [place], Main Office Address [address] [place] [address] Care Team Providers Care Quality Control Associate Name Role Phone DEE DEE PRINCE Primary Care Provider DEE DEE PRINCE Referring Provider Assessment No assessment recorded. Plan of Treatment Reminders Order Date Submit Date Provider Last Modified By Organization Details Last Modified Time Details Appointments None recorded. Lab TSH, serum or plasma 2023 024 4 Not available 4 15:25:21 vitamin D3, 25-hydroxy, serum 2023 024 [email or web address] 4 Not available 4 15:25:04 BMP, serum or plasma 2023 024 [email or web address] 4 Not available 4 15:23:23 HbA1c (hemoglobin A1c), blood 2023 024 [email or web address] 4 Not available 4 15:23:39 CBC w/ auto diff 2023 024 4 Not available 4 15:24:31 BMP, serum or plasma 2023 024 [email or web address] 4 Not available 4 15:24:48 lipid panel, serum 2023 024 [email or web address] 4 Not available 4 15:23:57 hepatic function panel, serum 2023 024 4 Not available 4 15:24:15 Referral endocrinolo gy referral - Please call patient to schedule an appointment . Thank you. [address] - Endocrinology , [address], [address], [place], [address], 08:53:38 Procedures None recorded. Surgeries None recorded. Imaging None recorded. Medication Orders lisinopril 5 mg tablet 2023 024 [id number], [address], [place], [place], [id number], 14:30:25 Patient TargetsNo targets recorded. Patient InstructionsNo instructions recorded. Reason for Referral Endocrinology Referral for H yperthyroidism Please call patient to schedule an appointment. Thank you. Referring Physician: Dee Dee Prince, Family Medicine, Encounter Date: 10/08/2023 Results Created Date Observation Date Name Description Value Unit Range Abnormal Flag Note LastModifiedBy Organization Detail LastModifiedTime 07/13/19 24 07/13/2023 urina lysis , dipst ick Leukocytes (reference range: negative cheryl/ l) Trace Not Available s_[address], [place], [address], 07/13/2023 15:43:37 07/13/19 24 07/13/2023 urina lysis , dipst ick Nitrite (reference rage: negative mg/dl) negati ve Not Available s_[address], [place], [address], 07/13/2023 15:43:37 07/13/19 24 07/13/2023 urina lysis , dipst ick Urobilinogen (reference range: 0.2-1 mg/dl) 0.2 Not Available s_ g [address], [place], [address], 07/13/2023 15:43:37 07/13/19 24 07/13/2023 urina lysis , dipst ick Protein (reference range: negative mg/dl) Negati ve Not Available [address], [place], [address], 07/13/2023 15:43:37 07/13/19 24 07/13/2023 urina lysis , dipst ick pH (reference range: 5-7) 5.5 Not Available [address], [place], [address], 07/13/2023 15:43:37 07/13/19 24 07/13/2023 urina lysis , dipst ick Blood (reference range: negative Uriah/ l) Negati ve Not Available [address], [place], [address], 07/13/2023 15:43:37 07/13/19 24 07/13/2023 urina lysis , dipst ick Specific [place] (reference range: 1.005-1.030) 1.025 Not Available [address], [place], [address], 07/13/2023 15:43:37 07/13/19 24 07/13/2023 urina lysis , dipst ick Ketone (reference range: negative mg/dl) Negati ve Not Available [address], [place], [address], 07/13/2023 15:43:37 07/13/19 24 07/13/2023 urina lysis , dipst ick Bilirubin (reference range: negative mg/dl) Negati ve Not Available [address], [place], [address], 07/13/2023 15:43:37 07/13/19 24 07/13/2023 urina lysis , dipst ick Glucose (reference range: negative mg/dl) Negati ve Not Available [address], [place], [address], 07/13/2023 15:43:37 07/13/19 24 07/13/2023 urina lysis , dipst ick Appearance Clear Not Available [address], [place], [address], 07/13/2023 15:43:37 07/13/19 24 07/13/2023 urina lysis , dipst ick Color Yellow Not Available [address], [place], [address], 07/13/2023 15:43:37 07/24/19 24 07/24/2023 urina lysis , dipst ick Leukocytes (reference range: negative cheryl/ l) Small Not Available [address], [place], [address], 07/20/2023 10:33:53 07/24/19 24 07/24/2023 urina lysis , dipst ick Nitrite (reference rage: negative mg/dl) negati ve Not Available [address], [place], [address], 07/20/2023 10:33:53 07/24/19 24 07/24/2023 urina lysis , dipst ick Urobilinogen (reference range: 0.2-1 mg/dl) 0.2 Not Available [address], [place], [address], 07/20/2023 10:33:53 07/24/19 24 07/24/2023 urina lysis , dipst ick Protein (reference range: negative mg/dl) Negati ve Not Available [address], [place], [address], 07/20/2023 10:33:53 07/24/19 24 07/24/2023 urina lysis , dipst ick pH (reference range: 5-7) 6.5 Not Available [address], [place], [address], 07/20/2023 10:33:53 07/24/19 24 07/24/2023 urina lysis , dipst ick Blood (reference range: negative Uriah/ l) Negati ve Not Available [address], [place], [address], 07/20/2023 10:33:53 07/24/19 24 07/24/2023 urina lysis , dipst ick Specific [place] (reference range: 1.005-1.030) 1.015 Not Available [address], [place], [address], 07/20/2023 10:33:53 07/24/19 24 07/24/2023 urina lysis , dipst ick Ketone (reference range: negative mg/dl) Negati ve Not Available [address], [place], [address], 07/20/2023 10:33:53 07/24/19 24 07/24/2023 urina lysis , dipst ick Bilirubin (reference range: negative mg/dl) Negati ve Not Available [address], [place], [address], 07/20/2023 10:33:53 07/24/19 24 07/24/2023 urina lysis , dipst ick Glucose (reference range: negative mg/dl) Negati ve Not Available [address], [place], [address], 07/20/2023 10:33:53 07/24/19 07/24/2023 urina lysis , dipst ick Appearance Clear Not Available [address], [place], [address], 07/20/2023 10:33:53 07/24/19 24 07/24/2023 urina lysis , dipst ick Color Pale Yellow Not Available [address], [place], [address], 07/20/2023 10:33:53 08/08/19 24 08/08/2023 BASIC METAB OLIC PANEL sodium 140 mmol/ L 137-14 5 Not Available [facility] (Lab) [address] [place], [address], 08/08/2023 20:09:23 08/08/19 24 08/08/2023 BASIC METAB OLIC PANEL potassium 4.4 mmol/ L 3.5-5. 1 Not Available [facility] (Lab) [address] [place], [address], 08/08/2023 20:09:23 08/08/19 24 08/08/2023 BASIC METAB OLIC PANEL chloride 107 mmol/ L 98-107 Not Available [facility] (Lab) [address] [place], [address], 08/08/2023 20:09:23 08/08/19 24 08/08/2023 BASIC METAB OLIC PANEL carbon dioxide 26 mmol/ L 22-30 Not Available [facility] (Lab) [address] [place], [address], 08/08/2023 20:09:23 08/08/19 24 08/08/2023 BASIC METAB OLIC PANEL anion gap 11.4 mmol/ L 14-22 low Not Available [facility] (Lab) [address] [place], [address], 08/08/2023 20:09:23 08/08/19 24 08/08/2023 BASIC METAB OLIC PANEL glucose 77 mg/dL 70-99 Not Available [facility] (Lab) [address] [place], [address], 08/08/2023 20:09:23 08/08/19 24 08/08/2023 BASIC METAB OLIC PANEL BUN 22 mg/dL 8-19 high Not Available [facility] (Lab) [address] [place], [address], 08/08/2023 20:09:23 08/08/19 24 08/08/2023 BASIC METAB OLIC PANEL creatinine 0.56 mg/dL 0.66-1 .25 low Not Available [facility] (Lab) [address] [place], [address], 08/08/2023 20:09:23 08/08/19 24 08/08/2023 BASIC METAB OLIC PANEL GFR >60 Refer ence Range : Many ge GFR Healt hy Adult : >60 mL/mi n/1.7 3 m2 Chron ic Kidne y Disea se: 15-60 mL/mi n/1.7 3 m2 Kidne y Failu re: <15/m L/min /1.73 m2 www.n iddk. nih.g ov The MDRD study equat ion has not been valid ated in child felipe <18 years of age; pregn ant women ; the elder ly >85 years of age; or in some racia l or ethni c subgr oups, such as Hisid nics. Outsi de the valid ated chayo eters , estim ated GFR is less accur ate, requi ring clini leora judgm ent on a case- by-ca se basis . Clini leora inter preta tion for other races and ages must be made by the clini tricia. The MDRD study equat ion has not been valid ated for the evalu ation of serum creat inine relat ed to nutri antoinette l statu s or medic ation usage . For perso ns <18 years of age, a pedia tric GFR calcu lator is avail able on the [facility] websi te: https ://efra cole.cailin spencer.o rg/pr ofess ional s/kdo qi/gf r_cal culat or Not Available [facility] (Lab) [address] [place], [address], 08/08/2023 20:09:23 08/08/19 24 08/08/2023 BASIC METAB OLIC PANEL calcium 9.9 mg/dL 8.4-10 .2 Not Available [facility] (Lab) [address] [place], [address], 08/08/2023 20:09:23 08/08/19 24 08/08/2023 LIPID PANEL cholesterol 123 mg/dL 140-19 9 low NIH SUNDEEP NSUS RECOM MENDA TION FOR SUZANNA STERO L: ADULT CHILD LOW RISK: <200 <170 BORDE RLINE : <200- 239 ----- HIGH RISK: >240 >200 Not Available [facility] (Lab) [address] [place], [address], 08/08/2023 20:09:28 08/08/19 24 08/08/2023 LIPID PANEL triglyceride s 68 mg/dL 0-150 NIH SUNDEEP NSUS REPOR T RECOM MENDA TION FOR TRIGL YCERI LINDSEY: ADULT CHILD LOW RISK: <150 ----- BODER LINE: 150-1 99 ----- HIGH RISK: >200 ----- Not Available [facility] (Lab) [address] [place], [address], 08/08/2023 20:09:28 08/08/19 24 08/08/2023 LIPID PANEL HDL cholesterol 61 mg/dL 40- Not Available [facility] (Lab) [address] [place], [address], 08/08/2023 20:09:28 08/08/19 24 08/08/2023 LIPID PANEL LDL cholesterol, calculated 48 mg/dL 0-130 NIH SUNDEEP NSUS REPOR T RECOM MENDA TIONS FOR LDL: ADULT CHILD LOW RISK <130 <110 (OPTI MAL LDL) <100 ----- BORDE RLINE : 130-1 59 ----- HIGH RISK: >160 >130 A TRIGL YCERI DE RESUL T >400 INVAL IDATE S THE CALCU LATIO N FOR LDL FRACT IONAT ION - THE LDL RESUL T WILL NOT BE REPOR FLOWER. Not Available [facility] (Lab) [address] [place], [address], 08/08/2023 20:09:28 08/08/19 24 08/08/2023 HEPAT IC/LI SAM PANEL alkaline phosphatase 85 U/L 38-126 Not Available [facility] (Lab) [address] [place], [address], 08/08/2023 20:09:33 08/08/19 24 08/08/2023 HEPAT IC/LI SAM PANEL alanine aminotransfe rase 30 U/L 0-35 Not Available [facility] (Lab) [address] [place], [address], 08/08/2023 20:09:33 08/08/19 24 08/08/2023 HEPAT IC/LI SAM PANEL aspartate aminotransfe rase 39 U/L 15-37 high Not Available [facility] (Lab) [address] [place], [address], 08/08/2023 20:09:33 08/08/19 24 08/08/2023 HEPAT IC/LI SAM PANEL bilirubin, total 0.70 mg/dL 0.20-1 .30 Not Available [facility] (Lab) [address] [place], [address], 08/08/2023 20:09:33 08/08/19 24 08/08/2023 HEPAT IC/LI SAM PANEL bilirubin, conjugated (direct) 0.00 mg/dL 0.00-0 .30 Not Available [facility] (Lab) [address] [place], [address], 08/08/2023 20:09:33 08/08/19 24 08/08/2023 HEPAT IC/LI SAM PANEL biliurubin,u ncong. (indirect) 0.50 mg/dL 0.00-1 .1 Not Available [facility] (Lab) [address] [place], [address], 08/08/2023 20:09:33 08/08/19 24 08/08/2023 HEPAT IC/LI SAM PANEL total protein 7.2 g/dL 6.3-8. 2 Not Available [facility] (Lab) [address] [place], [address], 08/08/2023 20:09:33 08/08/19 24 08/08/2023 HEPAT IC/LI SAM PANEL albumin 4.5 g/dL 3.0-4. 4 high Not Available [facility] (Lab) [address] [place], [address], 08/08/2023 20:09:33 08/08/19 24 08/08/2023 HEPAT IC/LI SAM PANEL globulin 2.7 g/dL 2.6-4. 2 Not Available [facility] (Lab) [address] [place], [address], 08/08/2023 20:09:33 08/08/19 24 08/08/2023 HEPAT IC/LI SAM PANEL A/G ratio 1.7 ratio 1.0-2. 0 Not Available [facility] (Lab) [address] [place], [address], 08/08/2023 20:09:33 08/08/19 24 08/08/2023 CBC/C OMPLE TE BLD COUNT W/DIF F white blood cells 8.1 x10'3 /uL 4.2-10 .8 Not Available [facility] (Lab) [address] [place], [address], 08/08/2023 20:23:28 08/08/19 24 08/08/2023 CBC/C OMPLE TE BLD COUNT W/DIF F red blood cells 5.05 x10'6 /uL 3.80-5 .20 Not Available [facility] (Lab) [address] [place], [address], 08/08/2023 20:23:28 08/08/19 24 08/08/2023 CBC/C OMPLE TE BLD COUNT W/DIF F hemoglobin 14.7 g/dL 12.0-1 5.6 Not Available [facility] (Lab) [address] [place], [address], 08/08/2023 20:23:28 08/08/19 24 08/08/2023 CBC/C OMPLE TE BLD COUNT W/DIF F hematocrit 44.4 % 35.7-4 5.7 Not Available [facility] (Lab) [address] [place], [address], 08/08/2023 20:23:28 08/08/19 24 08/08/2023 CBC/C OMPLE TE BLD COUNT W/DIF F mean red cell volume 87.9 fL 82.0-9 9.0 Not Available [facility] (Lab) [address] [place], [address], 08/08/2023 20:23:28 08/08/19 24 08/08/2023 CBC/C OMPLE TE BLD COUNT W/DIF F mean red cell hemoglobin 29.1 pg 27.0-3 3.0 Not Available [facility] (Lab) [address] [place], [address], 08/08/2023 20:23:28 08/08/19 24 08/08/2023 CBC/C OMPLE TE BLD COUNT W/DIF F mean RBC HGB concentratio n 33.1 g/dL 31.0-3 6.0 Not Available [facility] (Lab) [address] [place], [address], 08/08/2023 20:23:28 08/08/19 24 08/08/2023 CBC/C OMPLE TE BLD COUNT W/DIF F red cell distribution width 13.2 % 11.8-1 5.5 Not Available [facility] (Lab) [address] [place], [address], 08/08/2023 20:23:28 08/08/19 24 08/08/2023 CBC/C OMPLE TE BLD COUNT W/DIF F platelets 362 x10'3 /uL 150-40 0 Not Available [facility] (Lab) [address] [place], [address], 08/08/2023 20:23:28 08/08/19 24 08/08/2023 CBC/C OMPLE TE BLD COUNT W/DIF F mean platelet volume 9.4 fL 9.0-12 .4 Not Available [facility] (Lab) [address] [place], [address], 08/08/2023 20:23:28 08/08/19 24 08/08/2023 CBC/C OMPLE TE BLD COUNT W/DIF F neutrophils 54.6 % 39.0-7 2.0 Not Available [facility] (Lab) [address] [place], [address], 08/08/2023 20:23:28 08/08/19 24 08/08/2023 CBC/C OMPLE TE BLD COUNT W/DIF F lymphocytes 32.3 % 16.0-4 7.0 Not Available [facility] (Lab) [address] [place], [address], 08/08/2023 20:23:28 08/08/19 24 08/08/2023 CBC/C OMPLE TE BLD COUNT W/DIF F monocytes 8.1 % 5.0-12 .0 Not Available [facility] (Lab) [address] [place], [address], 08/08/2023 20:23:28 08/08/19 24 08/08/2023 CBC/C OMPLE TE BLD COUNT W/DIF F eosinophils 4.2 % 1.0-7. 0 Not Available [facility] (Lab) [address] [place], [address], 08/08/2023 20:23:28 08/08/19 24 08/08/2023 CBC/C OMPLE TE BLD COUNT W/DIF F basophils 0.6 % 0.0-2. 0 Not Available [facility] (Lab) [address] [place], [address], 08/08/2023 20:23:28 08/08/19 24 08/08/2023 CBC/C OMPLE TE BLD COUNT W/DIF F immature granulocytes 0.2 % 0.00-0 .50 Not Available [facility] (Lab) [address] [place], [address], 08/08/2023 20:23:28 08/08/19 24 08/08/2023 CBC/C OMPLE TE BLD COUNT W/DIF F neutrophils, absolute count 4.43 x10'3 /uL 1.5-8. 0 Not Available [facility] (Lab) [address] [place], [address], 08/08/2023 20:23:28 08/08/19 24 08/08/2023 CBC/C OMPLE TE BLD COUNT W/DIF F lymphocytes, absolute count 2.62 x10'3 /uL 1.07-3 .43 Not Available [facility] (Lab) [address] [place], [address], 08/08/2023 20:23:28 08/08/19 24 08/08/2023 CBC/C OMPLE TE BLD COUNT W/DIF F monocytes, absolute count 0.66 x10'3 /uL 0.29-0 .99 Not Available [facility] (Lab) [address] [place], [address], 08/08/2023 20:23:28 08/08/19 24 08/08/2023 CBC/C OMPLE TE BLD COUNT W/DIF F eosinophils, absolute count 0.34 x10'3 /uL 0.02-0 .53 Not Available [facility] (Lab) [address] [place], [address], 08/08/2023 20:23:28 08/08/19 24 08/08/2023 CBC/C OMPLE TE BLD COUNT W/DIF F basophils, absolute count 0.05 x10'3 /uL 0.01-0 .08 Not Available [facility] (Lab) [address] [place], [address], 08/08/2023 20:23:28 08/08/19 24 08/08/2023 CBC/C OMPLE TE BLD COUNT W/DIF F immature granulocytes ,absolute 0.02 x10'3 /uL 0.00-0 .05 Not Available [facility] (Lab) [address] [place], [address], 08/08/2023 20:23:28 08/08/19 24 08/08/2023 CBC/C OMPLE TE BLD COUNT W/DIF F nucleated red blood cells 0.0 % -0 Not Available [facility] (Lab) [address] [place], [address], 08/08/2023 20:23:28 08/08/19 24 08/08/2023 CBC/C OMPLE TE BLD COUNT W/DIF F NRBC# 0.00 x10'3 /uL Not Available [facility] (Lab) [address] [place], [address], 08/08/2023 20:23:28 08/08/19 24 08/08/2023 VITAM IN D 25-HY DROXY [id number] 67.9 NG/mL 30-100 Vitam in D Statu s: Defic ient: <20 ng/mL Insuf ficie nt: 20-29 ng/mL Suffi cient : 30-10 0 ng/mL Not Available [facility] (Lab) [address] [place], [address], 08/08/2023 20:25:30 08/08/19 24 08/08/2023 TSH thyroid-stim ulating hormone 0.071 uIU/m L 0.465- 4.680 low Not Available [facility] (Lab) [address] [place], [address], 08/08/2023 20:49:37 08/08/19 24 08/08/2023 HEMOG LOBIN A1C HA1C 5.9 % 4.0-6. 0 Diabe desean Scree domingo Crite lawrence: <5.7% Consi stent with absen ce of diabe desean 5.7-6 .4% Consi stent with incre ased risk for diabe desean (pred iabet es) >OR=6 .5% Consi stent with diabe desean REFER ENCE: Diabe desean Care 2016, 39(Cramer ppl.1 ):s13 -s22 Not Available Not Available 08/08/2023 21:48:07 09/20/19 24 09/20/2023 BASIC METAB OLIC PANEL sodium 138 mmol/ L 137-14 5 Not Available [facility] (Lab) [address] [place], [address], 09/20/2023 22:11:02 09/20/19 24 09/20/2023 BASIC METAB OLIC PANEL potassium 4.5 mmol/ L 3.5-5. 1 Not Available [facility] (Lab) [address] [place], [address], 09/20/2023 22:11:02 09/20/19 24 09/20/2023 BASIC METAB OLIC PANEL chloride 106 mmol/ L 98-107 Not Available [facility] (Lab) [address] [place], [address], 09/20/2023 22:11:02 09/20/19 24 09/20/2023 BASIC METAB OLIC PANEL carbon dioxide 25 mmol/ L 22-30 Not Available [facility] (Lab) [address] [place], [address], 09/20/2023 22:11:02 09/20/19 24 09/20/2023 BASIC METAB OLIC PANEL anion gap 11.5 mmol/ L 14-22 low Not Available [facility] (Lab) [address] [place], [address], 09/20/2023 22:11:02 09/20/19 24 09/20/2023 BASIC METAB OLIC PANEL glucose 94 mg/dL 70-99 Not Available [facility] (Lab) [address] [place], [address], 09/20/2023 22:11:02 09/20/19 24 09/20/2023 BASIC METAB OLIC PANEL BUN 20 mg/dL 8-19 high Not Available [facility] (Lab) [address] [place], [address], 09/20/2023 22:11:02 09/20/19 24 09/20/2023 BASIC METAB OLIC PANEL creatinine 0.63 mg/dL 0.66-1 .25 low Not Available [facility] (Lab) [address] [place], [address], 09/20/2023 22:11:02 09/20/19 24 09/20/2023 BASIC METAB OLIC PANEL GFR >60 Refer ence Range : Many ge GFR Healt hy Adult : >60 mL/mi n/1.7 3 m2 Chron ic Kidne y Disea se: 15-60 mL/mi n/1.7 3 m2 Kidne y Failu re: <15/m L/min /1.73 m2 www.n iddk. nih.g ov The MDRD study equat ion has not been valid ated in child felipe <18 years of age; pregn ant women ; the elder ly >85 years of age; or in some racia l or ethni c subgr oups, such as Hispa nics. Outsi de the valid ated chayo eters , estim ated GFR is less accur ate, requi ring clini leora judgm ent on a case- by-ca se basis . Clini leora inter preta tion for other races and ages must be made by the clini tricia. The MDRD study equat ion has not been valid ated for the evalu ation of serum creat inine relat ed to nutri antoinette l statu s or medic ation usage . For perso ns <18 years of age, a pedia tric GFR calcu lator is avail able on the [facility] websi te: https ://efra w.kid johanna.o rg/pr ofess ional s/kdo qi/gf r_cal culat or Not Available [facility] (Lab) [address] [place], [address], 09/20/2023 22:11:02 09/20/19 24 09/20/2023 BASIC METAB OLIC PANEL calcium 9.3 mg/dL 8.4-10 .2 Not Available [facility] (Lab) [address] [place], [address], 09/20/2023 22:11:02 09/20/19 24 09/20/2023 TSH thyroid-stim ulating hormone 0.112 uIU/m L 0.465- 4.680 low Not Available [facility] (Lab) [address] [place], [address], 09/20/2023 23:02:38 09/20/19 24 09/21/2023 CBC/C OMPLE TE BLD COUNT W/DIF F white blood cells 7.0 x10'3 /uL 4.2-10 .8 Not Available [facility] (Lab) [address] [place], [address], 09/21/2023 01:08:49 09/20/19 24 09/21/2023 CBC/C OMPLE TE BLD COUNT W/DIF F red blood cells 4.73 x10'6 /uL 3.80-5 .20 Not Available [facility] (Lab) [address] [place], [address], 09/21/2023 01:08:49 09/20/19 24 09/21/2023 CBC/C OMPLE TE BLD COUNT W/DIF F hemoglobin 13.8 g/dL 12.0-1 5.6 Not Available [facility] (Lab) [address] [place], [address], 09/21/2023 01:08:49 09/20/19 24 09/21/2023 CBC/C OMPLE TE BLD COUNT W/DIF F hematocrit 42.3 % 35.7-4 5.7 Not Available [facility] (Lab) [address] [place], [address], 09/21/2023 01:08:49 09/20/19 24 09/21/2023 CBC/C OMPLE TE BLD COUNT W/DIF F mean red cell volume 89.4 fL 82.0-9 9.0 Not Available [facility] (Lab) [address] [place], [address], 09/21/2023 01:08:49 09/20/19 24 09/21/2023 CBC/C OMPLE TE BLD COUNT W/DIF F mean red cell hemoglobin 29.2 pg 27.0-3 3.0 Not Available [facility] (Lab) [address] [place], [address], 09/21/2023 01:08:49 09/20/19 24 09/21/2023 CBC/C OMPLE TE BLD COUNT W/DIF F mean RBC HGB concentratio n 32.6 g/dL 31.0-3 6.0 Not Available [facility] (Lab) [address] [place], [address], 09/21/2023 01:08:49 09/20/19 24 09/21/2023 CBC/C OMPLE TE BLD COUNT W/DIF F red cell distribution width 14.2 % 11.8-1 5.5 Not Available [facility] (Lab) [address] [place], [address], 09/21/2023 01:08:49 09/20/19 24 09/21/2023 CBC/C OMPLE TE BLD COUNT W/DIF F platelets 215 x10'3 /uL 150-40 0 Not Available [facility] (Lab) [address] [place], [address], 09/21/2023 01:08:49 09/20/19 24 09/21/2023 CBC/C OMPLE TE BLD COUNT W/DIF F neutrophils 57.4 % 39.0-7 2.0 Not Available [facility] (Lab) [address] [place], [address], 09/21/2023 01:08:49 09/20/19 24 09/21/2023 CBC/C OMPLE TE BLD COUNT W/DIF F lymphocytes 31.6 % 16.0-4 7.0 Not Available [facility] (Lab) [address] [place], [address], 09/21/2023 01:08:49 09/20/19 24 09/21/2023 CBC/C OMPLE TE BLD COUNT W/DIF F monocytes 6.5 % 5.0-12 .0 Not Available [facility] (Lab) [address] [place], [address], 09/21/2023 01:08:49 09/20/19 24 09/21/2023 CBC/C OMPLE TE BLD COUNT W/DIF F eosinophils 3.4 % 1.0-7. 0 Not Available [facility] (Lab) [address] [place], [address], 09/21/2023 01:08:49 09/20/19 24 09/21/2023 CBC/C OMPLE TE BLD COUNT W/DIF F basophils 0.7 % 0.0-2. 0 Not Available [facility] (Lab) [address] [place], [address], 09/21/2023 01:08:49 09/20/19 24 09/21/2023 CBC/C OMPLE TE BLD COUNT W/DIF F immature granulocytes 0.4 % 0.00-0 .50 Not Available [facility] (Lab) [address] [place], [address], 09/21/2023 01:08:49 09/20/19 24 09/21/2023 CBC/C OMPLE TE BLD COUNT W/DIF F neutrophils, absolute count 3.99 x10'3 /uL 1.5-8. 0 Not Available [facility] (Lab) [address] [place], [address], 09/21/2023 01:08:49 09/20/19 24 09/21/2023 CBC/C OMPLE TE BLD COUNT W/DIF F lymphocytes, absolute count 2.20 x10'3 /uL 1.07-3 .43 Not Available [facility] (Lab) [address] [place], [address], 09/21/2023 01:08:49 09/20/19 24 09/21/2023 CBC/C OMPLE TE BLD COUNT W/DIF F monocytes, absolute count 0.45 x10'3 /uL 0.29-0 .99 Not Available [facility] (Lab) [address] [place], [address], 09/21/2023 01:08:49 09/20/19 24 09/21/2023 CBC/C OMPLE TE BLD COUNT W/DIF F eosinophils, absolute count 0.24 x10'3 /uL 0.02-0 .53 Not Available [facility] (Lab) [address] [place], [address], 09/21/2023 01:08:49 09/20/19 24 09/21/2023 CBC/C OMPLE TE BLD COUNT W/DIF F basophils, absolute count 0.05 x10'3 /uL 0.01-0 .08 Not Available [facility] (Lab) [address] [place], [address], 09/21/2023 01:08:49 09/20/19 24 09/21/2023 CBC/C OMPLE TE BLD COUNT W/DIF F immature granulocytes ,absolute 0.03 x10'3 /uL 0.00-0 .05 Not Available [facility] (Lab) [address] [place], [address], 09/21/2023 01:08:49 09/20/19 24 09/21/2023 CBC/C OMPLE TE BLD COUNT W/DIF F nucleated red blood cells 0.0 % -0 Not Available [facility] (Lab) [address] [place], [address], 09/21/2023 01:08:49 09/20/19 24 09/21/2023 CBC/C OMPLE TE BLD COUNT W/DIF F NRBC# 0.00 x10'3 /uL Not Available [facility] (Lab) [address] [place], [address], 09/21/2023 01:08:49 06/27/19 24 06/27/2023 XR, chest No observ ation record ed. [email or web address] [address], [address], 08/02/2023 10:45:42 06/27/19 24 06/27/2023 CT, brain , w/o contr ast No observ ation record ed. [email or web address] [address], [address], 10/08/2023 14:25:42 06/28/19 24 06/28/2023 MRI, brain + brain stem, w/wo contr ast No observ ation record ed. [email or web address] [place] [id number] [facility] [address], [place], [address], 08/02/2023 10:47:19 06/28/19 24 06/28/2023 US, carot id arter y No observ ation record ed. [email or web address] [address], [place], [address], 08/02/2023 10:47:42 06/28/19 24 06/28/2023 US, echoc ardio gram No observ ation record ed. [email or web address] [address], [place], [address], 08/02/2023 10:47:59 06/28/19 24 06/28/2023 CT, brain , w/o contr ast No observ ation record ed. [email or web address] [place] [id number] [facility] [address], [place], [address], 08/02/2023 10:50:31 08/01/19 24 08/01/2023 US, neck, soft tissu e No observ ation record ed. [email or web address] [address], [place], [address], 10/03/2023 14:58:03 08/01/19 24 08/01/2023 US, thyro id No observ ation record ed. [email or web address] [facility] [address], [place], [address], 08/02/2023 11:33:30 08/02/19 24 08/02/2023 cardi ac monit or No observ ation record ed. [email or web address] [facility] [address] [facility] [address], [place], [address], 08/02/2023 14:25:59 08/10/19 24 08/10/2023 US, thyro id No observ ation record ed. [facility] [address], [place], [address], 08/27/2023 12:10:49 08/14/19 24 08/14/2023 fine needl e aspir ation , ultra sound guide d, thyro id (PROC ) No observ ation record ed. [address], [place], [address], 10/09/2023 10:33:52 08/15/19 24 08/14/2023 fine needl e aspir ation , ultra sound guide d, thyro id (PROC ) No observ ation record ed. [address], [place], [address], 08/17/2023 09:49:49 08/27/19 24 08/27/2023 fine needl e aspir ation , ultra sound guide d, thyro id (PROC ) No observ ation record ed. [facility] (Imaging) [address] [place] [address] [address], [place], [address], 08/27/2023 12:16:36 Result Notes None recorded. Problems Name Problem SNOMED Code Status Onset Date Resolution Date Notes Provider Name and Address Organization Details Recorded Time Pain in right hip joint 3446893965783 02 Active 2021 Not Available [employer] 3 06:02:45 Osteoarthr itis of right hip joint 8660732742253 07 Active 2021 Not Available [facility] 3 06:02:45 Hyperlipid emia 15216427 Active 2020 Not Available [facility] 3 06:02:45 Essential hypertensi on 32061330 Active 2020 Not Available [facility] 3 06:02:45 Osteoporos is 86511623 Active 2021 DEXA 08/2021 Not Available [facility] 3 06:02:45 Prediabete s 998792644 Active 2021 Not Available [facility] 3 06:02:46 Bilateral hearing loss 62026994 Active 2020 Not Available [facility] 3 06:02:46 Acute urinary tract infection 551476693 Active 2022 AVA Dior [address], [place], [address] , [facility] 3 11:45:58 Urinary symptoms 415642981 Active 2022 GREGORIA Carter [address], [address], [place], [address] , [facility] 3 18:00:44 Hyperglyce popeye 69510028 Active 2022 GREGORIA Márquez-C [address], [address], [place], [address] , [facility] 3 14:19:05 Vitamin D deficiency 18720657 Active 2022 Dee Dee Prince MD [address], [address], [place], [address] , [facility] 3 11:44:26 Thyroid function tests abnormal 546808269 Active 2022 Dee Dee Prince MD [address], [address], [place], [address] , [facility] 3 11:45:17 Bradycardi a 97071941 Active 2022 GREGORIA Márquez-C [address], [place], [address] , [facility] 3 14:10:05 Mass of neck 214894026 Active 2022 CHERELLE MárquezP-C [address], [place], [address] , [facility] 3 14:17:14 Thyroid nodule 711209087 Active 2023 Liliam Goetz RN null, [facility] 4 13:04:00 Low back pain 312284996 Active 2023 Janae Keller RN null, [facility] 4 15:43:41 Dysuria 48946863 Active 2023 JOSEP Márquez [address], [address], [place], [address] , [facility] 4 10:33:50 Dizziness 276598445 Active 2023 Dee Dee Prince MD [address], [address], [place], [address] , [facility] 4 15:50:33 Sensorineu ral hearing loss 30031739 Active 2023 Liliam Goetz RN null, [facility] [employer] [facility] 4 13:12:48 Sensorineu ral hearing loss of bilateral ears 326710321 Active 2023 Tang Kinsey MD [address], [place], [address] , [facility] 4 13:19:53 Benign paroxysmal positional vertigo 151782805 Active 2023 Tang Kinsey MD [address], [place], [address] , [facility] 4 13:20:24 Hyperthyro idism 17489602 Active 2023 Dee Dee Prince MD [address], [place], [address] , [facility] 4 14:27:43 Benign paroxysmal positional vertigo 935642822 Active 2023 Dee Dee Prince MD [address], [place], [address] , [facility] 4 14:30:11 Problem Notes None recorded. Procedures Surgical History Date Name Laterality Status Provider Name and Address Organization Details Recorded Time 3 Medicare Wellness CPT Code, subsequent completed Jarvis Allen RN [place] [facility] 01/17/2023 11:33:03 2 Hip surgery completed Not Available [facility] 08/03/19 05:56:33 Imaging Results Imaging Date Name Status LastModified by Organization Details LastModified Time 06/27/2023 XR, chest completed [email or web address] [address], [address], 08/02/2023 10:45:42 06/27/2023 CT, brain, w/o contrast completed [email or web address] [address], [address], 10/08/2023 14:25:42 06/28/2023 MRI, brain + brain stem, w/wo contrast completed [email or web address] [address], [address], 08/02/2023 10:47:19 06/28/2023 US, carotid artery completed [email or web address] Kle[facility] on [address], [address], 08/02/2023 10:47:42 06/28/2023 US, echocardiogram completed [email or web address] [facility] on [address], [address], 08/02/2023 10:47:59 06/28/2023 CT, brain, w/o contrast completed [email or web address] [address], [address], 08/02/2023 10:50:31 08/01/2023 US, neck, soft tissue completed [email or web address] [address] [place] [address], [address], 10/03/2023 14:58:03 08/01/2023 US, thyroid completed [email or web address] [facility] [address], [place], [address], 08/02/2023 11:33:30 08/02/2023 court recording monitor completed [email or web address] [facility] [address] [facility] [address], [place], [address], 08/02/2023 14:25:59 08/10/2023 US, thyroid completed [email or web address] [facility] [address], [place], [address], 08/27/2023 12:10:49 08/14/2023 fine needle aspiration, ultrasound guided, thyroid (PROC) completed [address], [place], [address], 10/09/2023 10:33:52 08/14/2023 fine needle aspiration, ultrasound guided, thyroid (PROC) completed [address], [place], [address], 08/17/2023 09:49:49 08/27/2023 fine needle aspiration, ultrasound guided, thyroid (PROC) completed [facility] (Imaging) [address] [place] [address] [address], [address], 08/27/2023 12:16:36 Procedure Notes None recorded. Medical Equipment None Reported. Allergies No known drug allergies Medications Name Sig Start Date Stop Date Status Note LastModified by Organization Details LastModified Time stool softener 100mg capsules TAKE 1 CAPSULE BY MOUTH EVERY DAY 05/16 completed Not Available Not Available Not Available amoxicillin 500 mg capsule TK ONE C PO TID 06/17 completed Not Available Not Available Not Available prednisone 10 mg tablet 07/18 completed Not Available Not Available Not Available hydrocodone 5 mg-acetamin ophen 325 mg tablet TAKE 1 TABLET BY MOUTH EVERY 6 HOURS 07/18 completed Not Available Not Available Not Available lisinopril 20 mg tablet TAKE 1 TABLET BY MOUTH EVERY DAY 10/13 completed Not Available Not Available Not Available prednisone 20 mg tablet 3 po qday x 3 days then 2 po qday x 3 days then 1 po qday x 3 days then 1/2 tab po qday x 3 days then stop active Not Available Not Available No t Available alendronate 70 mg tablet active Not Available Not Available Not Available meclizine 12.5 mg tablet TAKE 1 TO 2 TABLETS BY MOUTH THREE TIMES DAILY NEEDED active Not Available Not Available No t Available acetaminoph en 300 mg-codeine 30 mg tablet TAKE 1 TABLET BY MOUTH FOUR TIMES DAILY NEEDED FOR PAIN 01/05 completed Not Available Not Available Not Available sulfamethox azole 800 mg-trimetho prim 160 mg tablet TAKE 1 TABLET BY MOUTH EVERY 12 HOURS FOR 3 DAYS 07/18 completed Not Available Not Available Not Available aspirin 81 mg tablet,mario alberto yed release TAKE 1 TABLET BY MOUTH DAILY active Not Available Not Available No t Available prednisone 10 mg tablets in a dose pack Take 1 tab by mouth, 3 times a day for 3 daysTake 1 tab by mouth 2 times a day for 2 daysTake 1 tab by mouth once a day for 1 day 07/18 completed Not Available Not Available Not Available propranolol 10 mg tablet TAKE 1 TABLET BY MOUTH EVERY 12 HOURS 08/07 completed Not Available Not Available Not Available tobramycin 0.3 % eye drops INSTILL 1 TO 2 DROPS IN THE RIGHT EYE QID 06/17 completed Not Available Not Available Not Available nitroglycer in 0.4 mg sublingual tablet DISSOLVE 1 TABLET UNDER THE TONGUE EVERY 5 MINUTES NEEDED FOR CHEST PAIN. MAY REPEAT DOSE EVERY 5 MINUTES UP TO 3 DOSES TOTAL active Not Available Not Available No t Available lisinopril 5 mg tablet Take 1 tablet every day by oral route. 2023 active Not Available Not Available Not Avai lable amoxicillin 500 mg-potassiu m clavulanate 125 mg tablet TAKE 1 TABLET BY MOUTH THREE TIMES DAILY 08/07 completed Not Available Not Available Not Available rosuvastati n 10 mg tablet 1 po qday active Not Available Not Available No t Available rosuvastati n 20 mg tablet 10/13 completed Not Available Not Available Not Available escitalopra m 5 mg tablet TAKE 1 TABLET BY MOUTH EVERY DAY 2023 active Not Available Not Available Not Avai lable nitrofurant oin monohydrate /macrocryst als 100 mg capsule TAKE 1 CAPSULE BY MOUTH EVERY 12 HOURS FOR 5 DAYS 08/07 completed Not Available Not Available Not Available Vitals Date Recorded Body height Body mass index (BMI) Body weight Body temperature Heart rate Oxygen saturation Oxygen saturation in Arterial blood by Pulse oximetry Systolic blood pressure Diastolic blood pressure Provider Name and Address Organization Details Last Updated DateTime 157.48 cm 21.9 kg/m2 45314.0 8 g 97.7 [degF] 92 /min 95 % 95 % 150 mm[Hg] 82 mm[Hg] Jarvis Allen RN [facility] [employer] [facility] 14:32:11 Date Recorded Body height Body mass index (BMI) Body weight Provider Name and Address Organization Details Last Updated DateTime 09/13/2023 157.48 cm 22.4 kg/m2 68818.71 g Liliam Goetz RN [facility] [employer] [facility] 09/13/2023 13:02:45 Date Recorded Body height Provider Name an d Address Organization Details Last Updated DateTime 09/20/2023 157.48 cm Joaquina Randall RN [facility] [employer] [facility] 09/20/2023 15:40:51 Date Recorded Body height Body mass index (BMI) Body weight Body temperature Heart rate Oxygen saturation Oxygen saturation in Arterial blood by Pulse oximetry Systolic blood pressure Diastolic blood pressure Provider Name and Address Organization Details Last Updated DateTime 157.48 cm 21.9 kg/m2 62908.0 8 g 98 [degF] 88 /min 94 % 94 % 120 mm[Hg] 80 mm[Hg] Jarvis Allen RN [facility] [employer] [facility] 14:07:21 Social History Question Answer Notes LastModified by Organizat ion Details LastModified Time Tobacco Smoking Status Never Smoker Not Available [facility] 08/02/2022 05:54:27 What Is Your Level Of Alcohol Consumption? None [id number] Information not available 08/02/2022 What Is Your Level Of Caffeine Consumption? Occasional [id number] Information not available 08/02/2022 How Much Tobacco Do You Chew? None [id number] Information not available 08/02/2022 Are You Deaf Or Do You Have Serious Difficulty Hearing? Yes Bilateral Hearing Loss [id number] Information not available 08/02/2022 What Type Of Diet Are You Following? REGULAR MIGRATION.[id number] Information not available 08/02/2022 Which Illicit Or Recreational Drugs Have You Used? No [id number].[id number] Information not available 08/02/2022 Do You Or Have You Ever Used E-cigarettes Or Vape? Never Used Electronic Cigarettes [id number].[id number] Information not available 08/02/2022 What Is Your Occupation? Retired [id number].66134 [id number] Information not available 08/02/2022 Are There Any Guns Present In Your Home? No MIGRATION.[id number] Information not available 08/02/2022 What Was The Date Of Your Most Recent Tobacco Screening? 01/05/2022 [id number] Information not available 08/02/2022 Do You Or Have You Ever Used Smokeless Tobacco? Never Used Smokeless Tobacco MIGRATION.52841 04215 Information not available 08/02/2022 Sex: Female Functional Status Question Answer Note LastModified by Organizat ion Details LastModified Time What is your exercise level? Occasional [id number] Information not available 08/02/2022 Mental Status None recorded. Family History Relationship Description Onset Age of this Age Resolved Age Notes LastModified by Organization Details LastModified Time Mother Myocardial infarction [id number] Not available 08/02/2022 05:56:36 Father Heart disease [id number] Not available 08/02/2022 05:56:36 Daughter Hypertensive disorder [id number] Not available 08/02/2022 05:56:36 Medical History Condition Response BLINDNESS N RHEUMATIC FEVER N KIDNEY STONES N BLADDER PROBLEMS N MRSA N OTHER # 1 N POLIO N LUNG DISEASE/DISORDER N RADIATION / CHEMOTHERAPY N COPD N Other # 2 N BLOOD DISEASES N SURGERY N EAR OR HEARING PROBLEMS N MUMPS N BOWEL PROBLEMS N FEMALE PROBLEMS / INFECTIONS N DEPRESSION (INCLUDING POST ) N STROKE/TIA N THYROID DISEASE N ULCERS N BENIGN PROSTATIC HYPERPLASIA N MEASLES N CERVICALGIA N TB SKIN TEST N MYOCARDIAL INFARCTION N PARAPELGIA N OBESITY N GERD/NAUSEA N ANEURYSM N URINARY/BLADDER/KIDNEY PROBLEMS N CORONARY ARTERY DISEASE (CAD) N MENIERE'S DISEASE N ADDICTION CONCERNS N ENDOMETRIOSIS N USE OF BLOOD THINNERS N SKIN PROBLEMS N EMPHYSEMA N GASTROINTESTINAL DISORDER N MUSCLE,JOINT OR BONE PROBLEMS N GASTROINTESTINAL BLEEDING N BLOOD CLOTS N ASTHMA N CATARACTS N ERECTILE DYSFUNCTION N GI PROBLEMS N CHF N Low Testosterone N NEUROPATHY N INFERTILITY N AIDS/HIV N FRACTURES N CHEMOTHERAPY / RADIATION N VISION/EYE PROBLEMS N LIVER DISEASE N MALE HYPOGONADISM N HYPERTENSION Y TOURETTE'S N ANXIETY DISORDER N BLOOD TRANSFUSION N ANEMIA/BLOOD DISORDER N CHRONIC EAR INFECTIONS N BRONCHITIS N TUBERCULOSIS N GLAUCOMA N FOOT PROBLEM N DIVERTICULITIS N CHICKENPOX N SLEEP APNEA N ALLERGIES/HAYFEVER N INFECTIOUS DISEASE N HEART ARRHYTHMIA N PROSTATE N INSOMNIA N HIGH CHOLESTEROL / HYPERLIPIDEMIA Y HYPERTHYROIDISM N EYE PROBLEMS N EATING DISORDER N EDEMA N CHRONIC PAIN SYNDROME N CAROTID BLOCKAGE N CONSTIPATION N BACK / NECK PROBLEMS N HAVE YOU BEEN HOSPITALIZED OR SEEN IN [facility] ER IN THE PAST YEAR ? N ATHEROSCLEROSIS N BREAST PROBLEMS N DIALYSIS N ECZEMA N FIBROMYALGIA N OSTEOPOROSIS Y ARTHRITIS Y NO SIGNIFICANT PAST MEDICAL HISTORY N APPENDICITIS N DIABETES, TYPE N BAD TEETH N HEARTBURN / REFLUX N ADD/ADHD N AUTISM SPECTRUM DISORDER (ASD) N HEPATITIS / LIVER DISEASE N PULMONARY DISEASE N GOUT N SLEEP DISORDER N ALZHEIMER'S DISEASE N PAIN N HERPES N DEMENTIA N HEADACHES/MIGRAINES N SEIZURES/EPILEPSY N VASCULAR DISEASE N PACEMAKER N DIZZINESS N HEART DISEASE/HEART PROBLEMS N KIDNEY DISEASE N DEVELOPMENTAL OR BEHAVIORAL DISORDERS N MULTIPLE SCLEROSIS N SCARLET FEVER N MENTAL DISORDER/ILLNESS N CARDIAC ARRHYTHMIA N CANCER: SPECIFY N PNEUMONIA N ATRIAL FIBRILLATION N Gall Stones N PULMONARY EMBOLISM N AUTOIMMUNE DISEASE N Gynecological History Statement/Question Response Sexually Active? N Menses Monthly N STIs/STDs N Current Control Method Menopause Breast Problems no Discharge no Obstetrics History GPAL:G 0 P 0 0 0 0 Past Encounters Encounter ID Performer Location Encounter Start Date Encounter Closed Date Diagnosis/Indication Diagnosis SNOMED-CT Code Diagnosis ICD10 Code Diagnosis Note [id number] [facility] [address] [place] [address] 12/15/2020 00:00:00 12/15/2020 16:00:58 [id number] [facility] [address] [place] [address] 01/06/2021 00:00:00 01/06/2021 12:25:18 [id number] [facility] [address] [place] [address] 07/27/2021 00:00:00 08/01/2021 07:54:44 [id number] [facility] [place] [address] [place] [address] 09/06/2021 00:00:00 09/06/2021 14:20:30 [id number] [facility] [place] [address] [place] [address] 09/09/2021 00:00:00 09/09/2021 15:11:12 [id number] [facility] [place] [address] [place] [address] 10/13/2021 00:00:00 11/01/2021 08:52:43 [id number] [facility] [place] [address] [place] [address] 11/10/2021 00:00:00 11/10/2021 12:55:53 [id number] [facility] [place] [address] [place] [address] 12/19/2021 00:00:00 12/19/2021 10:26:09 [id number] [facility] [employer] [address] [facility] [address] [place] [address] 01/05/2022 00:00:00 01/05/2022 11:07:00 [id number] _ATHENA_M IGRATION_ DEFAULT_1 _1 , 01/19/2022 00:00:00 01/19/2022 19:26:12 [id number] [facility] [employer] [address] [facility] [address] [place] [address] 02/02/2022 00:00:00 02/02/2022 14:15:49 [id number] [facility] [place] [address] [place] [address] 07/18/2022 00:00:00 07/30/2022 17:36:06 [id number] JOSEP Márquez [facility] [place] [address] [place] [address] 12/13/2022 14:02:07 12/13/2022 14:44:41 Hyperglycemia 45213155 R73.9 Concerns for blood sugars running high. Spot check this morning prior to breakfast was 170 Essential hypertension 75462636 I10 Will increase dose of lisinopril to 7.5mg daily. Continue to mx symptoms and bp daily. F/u in [address] f/u on 12/21 [id number] Dee Dee Prince MD [facility] Primary Care [facility] [address] [facility] [address] [place] [address] 01/17/2023 11:31:09 01/17/2023 12:24:12 Adult health examination 471754425 Z00.00 flu vaccine yearlycovi d booster this fallshingl es vaccine series if not completedc heck fasting labsno colon cancer screen neededrepe at [facility] in 2023mammog [place] declined Screening for disorder 763434095 Z13.9 Essential hypertension 91094205 I10 stableon lisinopril 5 mg daily Hyperlipidemia 64505549 E78.5 Z79.899 stableon rosuvastat in 10 mg daily Osteoporosis 56122565 M8 1.0 repeat dexa 4daily walkingcal cium + Dprescript ion medication declined Prediabetes 816657981 R7 3.03 stay activelowe r sugar dietcheck a1c Vitamin D deficiency 347 53503 E55.9 Thyroid fu nction tests abnormal 242954665 R94.6 [id number] JOSEP Márquez [facility] Primary Care [address] [place] [address] 05/16/2023 13:53:22 05/16/2023 15:01:30 Bradycardia 48496631 R00.1 -currently untreated- pt has had int pains to left side of chest for the last couple years, noting weakness along with this-last eval by cardiologi st was approx 1 year ago-will get ekg-abnorm al- labs obtained-i nstructed pt and daughter for f/u with her cardiologi st, pt agreed Mass of neck 104654950 R 22.1 -note mass to anterior neck-appet ite unaffected -spo2 96% on RA [id number] Dee Dee Prince MD [facility] Primary Care [place] [address] [place] [address] 05/18/2023 13:59:43 05/18/2023 16:36:16 [id number] Tang Kinsey MD [facility] [employer] [address] [place] [address] 07/11/2023 12:16:25 07/16/2023 11:23:11 Thyroid nodule 495796247 E04.1 [id number] GREGORIA Márquez-C [facility] Primary Care [place] [address] [place] [address] 07/13/2023 17:51:39 07/13/2023 17:53:42 [id number] GREGORIA Márquez-Jalen [facility] Primary Care [place] [address] [place] [address] 07/24/2023 09:06:18 07/24/2023 10:27:14 [id number] Dee Dee Prince MD [facility] Primary Care [place] [address] [place] [address] 08/08/2023 14:26:11 08/08/2023 15:07:12 Prediabetes 461994684 R73.03 Hyperlipidemia 59580551 E78.5 Z79.899 stableon rosuvastat in 10 mg daily Essential hypertension 80100026 I10 not at goal, but having recurrent dizzinessw ill hold off on med changes for now, is being monitored by cardiology Bradycardia 17632527 R00 .1 heart monitor showed no acute findingssa w cardiology will not increase bp med at this timetake care with position changes Vitamin D deficiency 347 09753 E55.9 Thyroid nodule 275006821 E04.1 scheduled for FNA with ENT [id number] Tang Kinsey MD [facility] [employer] [address] [place] [address] 09/13/2023 11:43:54 09/14/2023 08:10:12 Sensorineural hearing loss of bilateral ears 058778604 H90.3 Benign par oxysmal positional vertigo 712700191 H81.11 [id number] Dee Dee Prince MD [facility] Primary [place] [address] [facility] [address] [place] [address] 09/20/2023 15:38:57 09/20/2023 16:14:23 [id number] Dee Dee Prince MD [facility] Primary Care [place] [address] [facility] [address] [place] [address] 10/08/2023 14:04:20 10/08/2023 14:32:51 Hyperthyroidism 43119471 E05.90 persistent low tshdid not make appt with endocrine, referral sent againthyro id nodule was biopsied 08/15/23-en t did not recommend removal Benign par oxysmal positional vertigo 449192319 H81.13 will do PT-referre d by ENT Essential hypertension 06273090 I10 stableseei ng cardiology Health Concerns Section Related Observation LastModified by Organization Detai ls LastModified Time None Recorded Concern Status LastModified by Organization Details LastModified Time None Recorded Advance Directives Directive None Recorded Payers Encounter Date Sequence Insurance Name Policy Number Policy Adler Covered Member ID Adler Member ID Guarantor Name 07/24/2023 1 [place] Vaudell Owens [id number] Vaudell Owens 07/24/2023 2 [place] [id number] Lyndon Felice Roman [id number] Vaudell Owens 08/08/2023 1 [place] Owens [id number] Vaudell Owens 08/08/2023 2 [place] [id number] Lyndon Felice Roman [id number] Vaudell Owens 09/13/2023 1 [place] [id number] 6 Vaudell Owens 09/13/2023 2 [place] [id number] Lyndon Owens [id number] Vaudell Owens 09/20/2023 1 [place] Samantha Owens [id number] 6 Samantha Owens 09/20/2023 2 [facility] [id number] Lyndon Owens [id number] Samantha Owens 10/08/2023 1 [place] Samantha Owens [id number] 6 Samantha Owens 10/08/2023 2 [place] [id number] Lyndon Owens [id number] Samantha Owens Notes Date Note Type Note Provider Name and Address Organization Details Recorded Time 08/08/2023 text/html has been feeling about the same-tired and stressed, but is very ill and needs significant help at home. She is scheduled to f/u with cardiology and ENT. she continues to have episodes of dizziness. Dee Dee Prince MD [address], [place], [address], [employer] 08/30/2023 15:16:43 09/13/2023 text/html this patient reports hearing loss for years. She has not had a recent audiogram. In addition she has positional vertigo. Tang Kinsey MD [address], [place], [address], [employer] 09/13/2023 13:20:57 10/08/2023 text/html has been feeling about the same-tired and stressed, but is very ill and needs significant help at home. She is scheduled to f/u with cardiology and ENT. she continues to have episodes of dizziness. update 10/08/23: will go to pt for bppv, recommended by ENT. Thyroid nodule bx-no removal recommended. Still having some dizziness off and on. Dee Dee Prince MD [address], [place], [address], [employer] 10/08/2023 14:33:19 OBGyn Episode No OBEpisode recorded.
--- NOTE | 2024-08-18 08:48 | EST_ITS ---
Patient Info Name: Samantha Owens Age: 84 years : 1940 Gender: Female Ht: 62 in Wt: 120 lbs BSA: 1.55 m2 HR: 59 bpm BP: 152 / 70 mmHg Exam Date: 08/18/2024 9:12 AM Exam Location: Echo Lab Patient Status: Outpatient Admit Date: 08/18/2024 Staff Ordering Physician: Kelvin Javier DO Attending Provider: Kelvin Javier DO Exercise Technologist: tim mercer Nurse: Rajwinder Apodaca APN Exam Type: CA stress kvng w NM Study Info Indications R07.9 - Chest pain, unspecified A regadenoson stress test was performed. Summary 1. No abnormal ST-T wave changes with lexiscan. 2. Please correlate with nuclear medicine images, reported separately. Protocol: Lexiscan Stress ECG Details Stage: REST Duration (min): 1 min : 27 sec HR (bpm): 58 SBP (mmHg): 152 DBP (mmHg): 70 Stage: REST Duration (min): 9 min : 12 sec HR (bpm): 68 SBP (mmHg): 152 DBP (mmHg): 70 Stage: STAGE 1 Duration (min): 1 min : 0 sec HR (bpm): 62 SBP (mmHg): 139 DBP (mmHg): 65 Stage: RECOVERY Duration (min): 1 min : 0 sec HR (bpm): 84 SBP (mmHg): 139 DBP (mmHg): 65 Stage: RECOVERY Duration (min): 2 min : 0 sec HR (bpm): 89 SBP (mmHg): 139 DBP (mmHg): 65 Stage: RECOVERY Duration (min): 3 min : 0 sec HR (bpm): 80 SBP (mmHg): 137 DBP (mmHg): 55 Stage: RECOVERY Duration (min): 3 min : 26 sec HR (bpm): 82 SBP (mmHg): 137 DBP (mmHg): 55 Rest HR: 68 bpm Peak HR: 90 bpm Rest Sys BP: 152 mmHg Peak Sys BP: 139 mmHg Max Pred HR: 136 bpm % Max Pred HR: 66 % Target HR: 116 bpm Max RPP: 12,510 bpm*mmHg Total Time: 1 min : 0 sec Rest Bello BP: 70 mmHg Peak Bello BP: 65 mmHg Total Dose: 0.4 mg Resting ECG Sinus bradycardia with a ventricular rate of 59 beats per minute. Right bundle-branch block. No ischemic ST-T wave changes. Stress ECG No ischemic ST-T wave changes. Arrhythmias Occasional PACs. Occasional PVCs. Report Signatures
== END 2024-08-18 08:19 | disposition home or self-care (01) ==
PROVIDERS: PCP Family Medicine; Visit Provider Family Medicine
DX: R07.9 Chest pain, unspecified (principal)
CPT/HCPCS: 78452; 93017; A9502; J2785

== ENCOUNTER → 2024-10-28 15:11 | Outpatient (CLI) | payer MEDICARE, SELFPAY ==
--- NOTE | ~2024-10-28 | XR_ITS ---
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 There are dystrophic calcifications overlying th e gluteal regions and pelvis. No acute fracture or traumatic malalignment. Prosthesis well seated. Os teopenia. There is mild osteitis pubis. Impression: 1: No acute bone or joint abnormality. Reviewed, dictated and finalized at location A. Impression: 1: No acute bone or joint abnormality.
== END ==
PROVIDERS: PCP Family Medicine; Visit Provider Family Medicine
DX: M25.551 Pain in right hip (principal)
CPT/HCPCS: 73502

== ENCOUNTER 2025-03-11 14:40 | Outpatient (CLI) | payer MEDICARE, SELFPAY ==
--- NOTE | ~2025-03-11 | US_ITS ---
EXAMINATION: US thyroid DATE: 03/11/2025 15:06 INDICATION: Thyroid nodule TECHNIQUE: Multiple ultrasound images of the thyroid were obtained. COMPARISON: None. FINDINGS: The right thyroid lobe measures 5.0 x 1.7 x 1.4 cm. The left thyroid lobe measures 5.1 x 1.7 x 1.6 cm. There are multiple bilateral thyroid nodules. This includes the largest 2.9 cm TI RADS 1 cystic nodule at the left side of the thyroid isthmus. There are couple additional mixed 1 cystic nodules in the mid right thyroid lobe measuring 10 mm and 7 mm. Solid nodules include a couple solid hypoechoic wider than tall nodules with smooth to ill-defined margins and without echogenic foci (TI-RADS 4, moderately suspicious , FNA if >=1.5 cm, annual followup is >=1 cm) measuring 2.0 cm in the inferior right thyroid, 1.0 cm in the mid right thyroid and 1.9 cm the inferior left thyroid. There is an additional 1.3 cm solid wider than tall hypoechoic nodule with lobular margins in the superior left thyroid, also TI RADS 4. IMPRESSION: 1. Multinodular goiter. Recommend ultrasound-guided biopsy of the 2.0 cm TI RADS 4 nodule in the inferior right thyroid lobe and a 1.9 cm TI RADS 4 nodule inferior left thyroid. Reviewed, dictated and finalized at location A. IMPRESSION: 1. Multinodular goiter. Recommend ultrasound-guided biopsy of the 2.0 cm TI RAD S 4 nodule in the inferior right thyroid lobe and a 1.9 cm TI RADS 4 nodule inf erior left thyroid.
== END 2025-03-11 14:41 | disposition home or self-care (01) ==
LOC: MICIMG 14:41
PROVIDERS: PCP Family Medicine; Visit Provider Otolaryngology
DX: E04.2 Nontoxic multinodular goiter (principal)
CPT/HCPCS: 76536